=== PATIENT | male | born 1980 | race Caucasian/White ===

== ENCOUNTER 2019-02-14 06:20 | Inpatient (IN) | payer OTHER, MEDICAID ==
[2019-02-14] VITALS (34 sets, daily range): BP systolic 91–164; BP diastolic 42–114
[~2019-02-14] VITALS: Ht 172.7 cm; Wt 96.6 kg
--- NOTE | 2019-02-14 06:45 | NUR ---
38 YO M MORE FROM HOME FOR ALOC. PER EMS, FAMILY CALLED 911 DUE TO PT BEHAVING ABNORMALLY. EMS STATES FAMILY BELIEVES HE MAY HAVE TAKEN TOO MANY PERCOCET. UPON ARRIVAL, PT IS AWAKE, ALERT, AROUSABLE TO VOICE. PT A/O TO NAME AND ANSWERED "4"" WHEN ASKED HOW MANY PERCOCET HE INGESTED. SPEECH IS SLURRED AND MUMBLING. PT IS GENERALLY CONFUSED. BILATERAL CATARACTS NOTED. PER FAMILY/EMS PT HAS TOTAL BLINDNESS. PERITONEAL SHUNT NOTED TO LEFT FOREARM. THRILL/BRUIT NOTED. PT STATES HE HAS PAIN "ALL OVER". PMH-- HTN, DM, ESDR, DIALYSIS DEPENDENT. (DIALYSIS TODAY)
--- NOTE | 2019-02-14 06:49 | NUR ---
PER FAMILY, PT TOOK PERCOCET AND A WHITE PILL WITH MARKING 0-24 AND IT WAS DESCRIVED A MUSCLE RELAXER. PER POISON CONTROLL THE PILL IS IDENTIFIED BACLOFEN. PT IS BLIND AND AN UNKNOWN AMMOUNTS OF MEDICATIONS WERE TAKEN. SPOKE TO DON AT [facility]. RECOMENDATIONS RELAYED TO DR BRADLEY. MONITOR:WIRE ROLLER/AIRWAY, SEIZURES, HYPOTENTION, CARDIAC GIVE: IV FLUIDS, VASSOPRESSORS, AND ATIVAN NEEDED. LABS: CBC AND CMP, CK, AND RENAL FUNCTION OBSERVATION TIME: 8 HOURS AFTER INGESTION
--- NOTE | 2019-02-14 07:00 | NUR ---
URINARY STRAIGHT CATHETER ATTEMPTED WITH PT CONSENT. 14 FR CATHETER INSERTED WITH STERILE TECHNIQUE. LESS THAN 10 ML OBTAINED.
--- NOTE | 2019-02-14 07:16 | NUR ---
REPORT GIVEN TO RIMA NOVA. TRANSFER OF CARE AT THIS TIME.
--- NOTE | 2019-02-14 07:17 | NUR ---
RECEIVED REPORT FROM PM NURSE.
--- NOTE | 2019-02-14 07:25 | NUR ---
MD. LUNA ASSESSING THE PT AT BEDSIDE.
--- NOTE | 2019-02-14 07:29 | NUR ---
INFORMED FAMILY MEMBER TO BRING THE MEDICATION LIST THAT PT TAKES AT HOME. FAMILY MEMBER TO TO BRING MEDS FROM HOME.
--- NOTE | 2019-02-14 07:35 | NUR ---
PT WENT FOR CT.
[2019-02-14 08:22] LABS: BASOPHILS % (AUTO) 0.3 % (0.0-2.0); EOSINOPHILS # (AUTO) 0.1 K/uL (0-0.4); EOSINOPHILS % (AUTO) 0.7 % (0.0-4.0); HEMATOCRIT 46.7 % (36-52); HEMOGLOBIN 15.1 g/dL (12.0-18.0); LYMPHOCYTES # (AUTO) 0.6 K/uL (2.0-11.5); MEAN CORPUSCULAR HEMOGLOBIN 29 pg (27-31); MEAN CORPUSCULAR HGB CONC 32 g/dL (33-37); MEAN CORPUSCULAR VOLUME 89.6 fL (80-94); MONOCYTES # (AUTO) 0.4 K/uL (0.8-1.0); MONOCYTES % (AUTO) 4.2 % (1.7-9.3); NEUTROPHILS # (AUTO) 7.6 K/uL (1.8-7.7); NEUTROPHILS % (AUTO) 87.8 % (42.2-75.2); PLATELET COUNT (AUTO) 241 K/uL (140-450); RED BLOOD CELL COUNT(AUTO) 5.21 MIL/uL (4.20-6.10); RED CELL DISTRIBUTION WIDTH 16.3 % (11.6-13.7); WHITE BLOOD COUNT (AUTO) 8.7 K/uL (4.8-10.8)
[2019-02-14] MEDS ORDERED: CARV25TA PO ×4 (08:26→10:34)
[2019-02-14] MEDS ORDERED: CINA60TA1 PO ×2 (08:26→10:34)
[2019-02-14 08:32] LABS: ACETONE, SERUM NEGATIVE (NEGATIVE)
[2019-02-14 08:35] LABS: URIC ACID 5.9 mg/dL (2.6-7.2)
[2019-02-14 08:37] LABS: ALBUMIN 5.1 g/dL (3.4-5.0); ANION GAP 19.8 (8-16); TOTAL BILIRUBIN 0.7 mg/dL (0.0-1.0)
[2019-02-14 08:40] LABS: PROTHROMBIN TIME 10.5 secs (10.8-13.4)
[2019-02-14 08:43] LABS: POTASSIUM 6.8 mmol/L (3.5-5.1)
[2019-02-14 08:44] LABS: CREATININE 12.6 mg/dL (0.7-1.3)
[2019-02-14] MEDS ORDERED: ERGO50CA PO ×2 (08:49→10:34)
[2019-02-14] MEDS ORDERED: ROSU10TA1 PO ×2 (08:49→10:34)
[2019-02-14] MEDS ORDERED: LEVO0.083 PO ×2 (08:49→10:34)
[2019-02-14] MEDS ORDERED: OMEP20TC12 PO ×2 (08:49→10:34)
[2019-02-14] MEDS ORDERED: ASPI81EC97 PO ×2 (08:49→10:34)
[2019-02-14] MEDS ORDERED: INSULIN REGULAR, HUMAN 100 UNIT/ML VIAL SUBQ ONE (08:50)
[2019-02-14] MEDS ORDERED: SODIUM BICARBONATE 8.4% PFS 50 MEQ/50 ML SYR IVP ONE (08:50)
[2019-02-14] MEDS ORDERED: methylPREDNISolone SS 125 MG/2 ML VIAL IVP ONE (08:50)
[2019-02-14] MEDS ORDERED: DEXTROSE 25% 10 ML SYR IVP ONE (08:50)
[2019-02-14] MEDS ORDERED: CALCIUM GLUCONATE 10% 1000 MG/10 ML VIAL IVP ONE (08:50)
[2019-02-14] MEDS ORDERED: FUROSEMIDE 40 MG/4 ML VIAL IVP ONE (08:50)
[2019-02-14] MEDS ORDERED: SODIUM POLYSTYRENE 15 GM/60 ML UDBTL PR ONE (08:50)
[2019-02-14] MEDS ORDERED: ALBUTEROL 0.083% 2.5 MG/3 ML NEBU INH ONE (08:50)
--- NOTE | 2019-02-14 09:07 | NUR ---
[facility] THERAPY AND RESPIRATORY DRUGS GIVEN ORDERED
[2019-02-14] MEDS ORDERED: DEXTROSE 50% 50 ML SYR IVP SCH (09:25)
[2019-02-14] MEDS ORDERED: ACETAMINOPHEN 325 MG TAB PO PRN (09:45)
[2019-02-14] MEDS ORDERED: ONDANSETRON 4 MG/2 ML VIAL IM/IVP PRN (09:45)
--- NOTE | 2019-02-14 09:47 | NUR ---
Note franco in ED - 02/14/19 at 0955 by MEDBSS PT VOMITINGX1, SWEATING. DR. LUNA MADE AWARE.
--- NOTE | 2019-02-14 09:47 | NUR ---
PT VOMITINGX1, WHILE MEDICATING WITH KYXELATE. PT SWEATING. DR. LUNA MADE AWARE.
--- NOTE | 2019-02-14 09:49 | NUR ---
[facility] residents evaluating patient at bedside.
--- NOTE | 2019-02-14 10:25 | NUR ---
Patient will be admitted to care of . Admited to [facility]. Will go to room RM 117 Belongings list completed. Report to RIMA MONTENEGRO. PT STABLE. FAMILY AT THE BEDSIDE.
--- NOTE | 2019-02-14 10:25 | NUR ---
PT ADMITTED TO FLOOR UNDER DR. MCADAMS . REPORT GIVEN TO RIMA MONTENEGRO. PT STABLE AT THE TIME OF TRANSFER. PT DAUGHTER AT [facility].
--- NOTE | 2019-02-14 10:30 | NUR ---
PATIENT WAS TRANSFERRED FROM ER. REPORT WAS GIVEN AT BEDSIDE. MRSA WAS SWABBED, VS WAS TAKEN. PATIENT WAS DROWSY, DISORIENTED, TOOK OFF PRODUCTION CONTROL TECHNOLOGIST. PATIENT WAS REORIENTED TO ROOM, STAFF, AND CALL LIGHT. RESPIRATION WAS EVEN, UNLABOR ON ROOM AIR. SKIN DRY AND WARM. IV PATENT AND INTACT. AV FISTULA WITH BRUITT PRESENT. PLAN OF CARE WAS DISCUSSED WITH FAMILY. BED AT LOW POSITION, SIDE RAILS UP. CALL LIGHT WITHIN REACH.
[2019-02-14 10:36] LABS: MAGNESIUM 3.2 mg/dL (1.8-2.4); PHOSPHORUS 4.4 mg/dL (2.5-4.9); THYROID STIMULATING HORMONE 3.07 uIU/mL (0.34-3.74)
[2019-02-14] MEDS ORDERED: DEXTROSE 50% 50 ML SYR IVP PRN (10:55)
--- NOTE | 2019-02-14 11:00 | NUR ---
CONSENT FOR DIALYSIS WAS OBTAINED AT BEDSIDE, SIGNED BY PATIENT'S MOTHER DUE TO PATIENT BEING LETHARGIC
[2019-02-14] MEDS: BLOOD GLUCOSE MONITORING 1 DEV DEV FS SCH ×3 (11:46→21:51)
--- NOTE | 2019-02-14 11:49 | NUR ---
PATIENT IS SLEEPING COMFORTABLY. RESPIRATION EVEN, UNLABOR ON ROOM AIR. NO DISTRESS NOTED AT THIS TIME.
--- NOTE | 2019-02-14 12:38 | NUR ---
PATIENT HAD AN EPISODE OF EMESIS, UNABLE TO TOLERATE PO MED AT THIS TIME. ZOFRAN WAS GIVEN PER ORDER.
--- NOTE | 2019-02-14 14:00 | NUR ---
PATIENT WAS SLEEPING COMFORTABLY. RESPIRATION EVEN, UNLABOR ON ROOM AIR. NO DISTRESS NOTED AT THIS TIME. DIALYSIS IS AT BEDSIDE
[2019-02-14] MEDS ORDERED: oxyCODONE/APAP 5/325 MG 1 TAB TAB PO PRN (15:00)
[2019-02-14] MEDS: MORPHINE SULFATE 2 MG/ML SYR IVP PRN (15:08)
--- NOTE | 2019-02-14 15:16 | NUR ---
PATIENT STARTED TO GET AGITATED, RESTLESS, AND SCREAMING. PATIENT WAS FOUND DIAPHORETIC, SINUS TACHY ON TELE MONITOR. DR. ALONZO WAS MADE AWARE. MORPHINE WAS GIVEN PER ORDER. ICE PACKS WERE APPLIED. DIALYSIS AT BEDSIDE.
[2019-02-14] MEDS ORDERED: HALOPERIDOL IM 5 MG/ML VIAL IM SCH (15:30)
--- NOTE | 2019-02-14 15:33 | NUR ---
PATIENT DESAT ON ROOM AIR WHEN FALLING ASLEEP PER DIALYSIS NURSE. PATIENT WAS FOUND BEING LETHARGIC, SPO2 78% ON ROOM AIR. RAPID RESPONSE WAS CALLED. PATIENT WAS PLACED ON 100% NON REBREATHER MASK. NARCAN WAS GIVEN, FOLLOWED 10CC FLUSH. PATIENT BECAME AGITATED, SWINGING ARMS, ATTEMPTING TO REMOVE MASK, AND DIALYSIS LINE. PATIENT WILL BE TRANSFERRED TO ICU PER Addendum: 02/14/19 at 1725 by Paula Stacy RN PLEASE SEE RAPID RESPONSE FORM ATTACH IN CHART
[2019-02-14] MEDS ORDERED: NALOXONE PFS 2 MG/2 ML SYR ONE (15:36)
[2019-02-14] MEDS ORDERED: SHARK OIL/PHENYLEPHRINE 60 GM TUBE TP PRN (16:00)
--- NOTE | 2019-02-14 16:00 | NUR ---
PATIENT WAS TRANSFERRED TO ICU. REPORT WAS GIVEN AT BEDSIDE. VS IS STABLE AT THIS TIME
[2019-02-14] MEDS ORDERED: fentaNYL 1 MG in NACL 0.9% 80 ML IV PRN (16:10)
--- NOTE | 2019-02-14 16:17 | NUR ---
PATIENT TRANSFERRED TO ICU VIA BED, ACCOMPANIED BY RNS DREW, RAYA, AND ROHIT. PATIENT IS AWAKE, AGITATED, COMBATIVE. DR. NICOLE AT BEDSIDE.
--- NOTE | 2019-02-14 16:40 | NUR ---
DR. NICOLE AND RESIDENT PHYSICIANS AT BEDSIDE TO INTUBATE PATIENT.
--- NOTE | 2019-02-14 16:45 | NUR ---
DR. UNA NICOLE AT BEDSIDE FOR INTUBATION DX: AIRWAY PROTECTION LOADER ENGINEER ASSIST
--- NOTE | 2019-02-14 16:50 | NUR ---
DIPRIVAN DOSE BASED ON DRY WEIGHT OF 95 KG.
--- NOTE | 2019-02-14 16:50 | NUR ---
PT. IS VERY RESTLESS, THRASHING IN BED, MOVING ALL EXT., TRYING TO GET UP. RT AC IV CAME OUT. RESSTARTED AGAIN ON THE RT AC WITH G 20 ANGIOCATH. ETOMIDATE AND ROCURONIUM GIVEN ORDERED FOR INTUBATION.
--- NOTE | 2019-02-14 16:50 | NUR ---
DIPRIVAN DRIP ALSO STARTED AT 50 MCG/KG/MIN. PER DR. NICOLE. PT. STILL TRASHING IN BED ON AND OFF.
[2019-02-14] MEDS ORDERED: ETOMIDATE 20 MG/10 ML VIAL IVP ONE ×2 (16:51→16:55)
[2019-02-14] MEDS ORDERED: ROCURONIUM 50 MG/5 ML VIAL IV ONE (16:55)
[2019-02-14] MEDS ORDERED: MORPHINE SULFATE 4 MG/ML SYR IVP PRN (17:00)
[2019-02-14] MEDS: CYCLOBENZAPRINE 10 MG TAB PO SCH (17:00)
[2019-02-14] MEDS: CARVEDILOL 12.5 MG TAB PO SCH (17:00)
[2019-02-14] MEDS ORDERED: LORazepam 2 MG/ML VIAL IVP PRN (17:00)
--- NOTE | 2019-02-14 17:00 | NUR ---
ORALLY INTUBATED BY DR. NICOLE. ETT SIZE 8.0, LIPLINE @ 24. VENT SETTINGS TV 500, FI02 100%, AC 18/MIN, PEEP 5.
--- NOTE | 2019-02-14 17:02 | NUR ---
DR. ALONZO SPEAKING WITH PATIENT'S MOTHER TO GET CONSENT FOR CENTRAL LINE PLACEMENT.
[2019-02-14] MEDS ORDERED: MIDAZOLAM MDV 50 MG in NACL 0.9% 40 ML IV PRN (17:05)
--- NOTE | 2019-02-14 17:10 | NUR ---
COMPTOMETER OPERATOR ASSIST DR ALONZO AT BESIDE FOR RIGHT JUGULAR LINE
--- NOTE | 2019-02-14 17:15 | NUR ---
STILL UNABLE TO INSERT TLC. PT RESTLESS ON AND OFF, TRYING TO GET UP. ATIVAN 2 MG IVP AND MORPHINE 4 MG IVP GIVEN. PROPOFOL AT 50 MCG/KG/MIN.
[2019-02-14] MEDS ORDERED: MORPHINE SULFATE 4 MG/ML SYR ONE (17:16)
[2019-02-14] MEDS ORDERED: LORazepam 2 MG/ML VIAL ONE (17:18)
--- NOTE | 2019-02-14 17:21 | NUR ---
DR. ALONZO AT BEDSIDE TO INSERT CENTRAL LINE. [facility] AND RIMA RUSSELL AT BEDSIDE.
[2019-02-14] MEDS ORDERED: MIDAZOLAM 2 MG/2 ML VIAL IV SCH (17:30)
[2019-02-14] MEDS ORDERED: LORazepam 2 MG/ML VIAL IM/IVP SCH (17:45)
--- NOTE | 2019-02-14 17:46 | NUR ---
FORMULA ROOM WORKER UNABLE TO OBTAIN ABG AT THIS TIME RIGHT J LINE REMAINS IN PROGRESS IN PROGRESS
--- NOTE | 2019-02-14 17:50 | NUR ---
STILL RESTLESS ON AND OFF. TRIES TO GET UP. IV SITE CAME OUT. TRIED TO RESTART IV. UNABLE TO.
--- NOTE | 2019-02-14 17:55 | NUR ---
SET DECORATOR STANDBY RIGHT J LINE REMAINS IN PROGRESS
[2019-02-14] MEDS ORDERED: PIPER/TAZO 3.375GM/D5W PREMIX 50 ML IV SCH (18:00)
--- NOTE | 2019-02-14 18:00 | NUR ---
IO INSERTED BY ER NURSE TO RT AND LEFT LEGS. FENTANYL DRIP STARTED AT 50 MCG/HR. VERSED DRIP STARTED AT 4 MG/HR.
--- NOTE | 2019-02-14 18:30 | NUR ---
STILL RESTLESS UNABLE TO INSERT TLC. VERSED INCREASED TO 6 MG/HR. FENTANYL DRIP INCREASED TO 100 MCG/HR
--- NOTE | 2019-02-14 18:35 | NUR ---
STILL RESTLESS, FENTANYL INCREASED TO 150 MCG/HR.
--- NOTE | 2019-02-14 18:45 | NUR ---
SEDATED. RASS -4. RT IJ TLC INSERTED BY DR. ALONZO.
--- NOTE | 2019-02-14 19:12 | NUR ---
ENDORSED CONTINUITY OF CARE TO ECONOMIC MANAGER MARK. RIMA
--- NOTE | 2019-02-14 19:30 | NUR ---
PER CHEST X-RAY, WITHDREW ETT 2CM. ETT NOW SECURED AT 24 CM AT THE TEETH.
--- NOTE | 2019-02-14 19:32 | NUR ---
RECEIVED REPORT FROM AM NURSE. PT IS SEDATED, RASS -4, PT IS VISUALLY DISABLED HISTORY OF DIABETIC RETINOPATHY, HR REGULAR, S1S2 PRESENT, CAP REFILL <3S, PULSES 2+ BILATERAL UPPER AND LOWER EXTREMITIES, LUNG SOUNDS CLEAR THROUGHOUT, BREATHING REGULARLY, PT ETT TO VENT, SIZE 8, TAPED AT 24 AT TEETH, AC/VC, FI02 100%, RR 18, F 50, PEEP 5, ABDOMEN SOFT, ROUND, NONDISTENDED, NONTENDER, BOWEL SOUNDS ACTIVE IN ALL QUADRANTS, BLADDER SOFT, NONDISTENDED, SKIN INTACT, WARM, DRY, COLOR APPROPRIATE TO ETHNICITY, PT HAS LEFT INTRAOSSEOUS LINE WITH PROPOFOL RUNNING AT 50 MCG/KG/HR, PT HAS RIGHT INTRAOSSEOUS LINE WITH VERSED RUNNING 6 MG/HR, FENTANYL AT 10 ML/HR, 125 MCG/HR. PT IS ON BILATERAL UPPER EXTREMITIES SOFT WRIST RESTRAINTS AND BILATERAL LOWER EXTREMITIES, SOFT ANKLE RESTRAINTS, SIDE RAILS UP X2, BED AT LOWEST POSITION, CALL LIGHTS WITHIN REACH, HOB 30 DEGREES. Addendum: 02/15/19 at 0102 by Magno Gil RN DRY WEIGHT 95 KG Addendum: 02/15/19 at 0144 by Magno Gil RN CORRECTION: PT SIDERAILS UP X4 Addendum: 02/15/19 at 0727 by Magno Gil RN CORRECTION PROPOFOL RUNNING AT 50 MCG/KG/MIN
--- NOTE | 2019-02-14 19:40 | NUR ---
RECEIVED PATIENT ON CURRENT SETTINGS: AC/VC 500 RATE 18 PEEP 5 FIO2 100%. PATIENT HAS A SIZE 8 ET TUBE THAT IS SECURED AT 26 CM AT THE TEETH. PATIENT IS SEDATED. SUCTIONED FOR SMALL, THIN, CLEAR SECRETIONS. VENT PLUGGED INTO RED OUTLET. ALARMS ON AND AUDIBLE. AMBU BAG AT BEDSIDE. FLOWMETER AVAILABLE FOR USE.
[2019-02-14] MEDS: PIPER/TAZO 2.25GM/D5W PREMIX 50 ML IV SCH (21:00)
--- NOTE | 2019-02-14 21:23 | NUR ---
VAP ORAL CARE PERFORMED, SCANT WHITE MUCOUS SUCTIONED AT MOUTH, PT TOLERATED PROCEDURE WELL, VS WNL.
--- NOTE | 2019-02-14 21:30 | NUR ---
NG TUBE INSERTED. CHECKED PLACEMENT WITH 2 RNS, NGT IS PATENT AND ON CORRECT PLACEMENT, PT TOLERATED PROCEDURE WELL. VS WNL.
--- NOTE | 2019-02-14 21:30 | NUR ---
FIO2 DECREASED FROM 100 TO 70% PER ABG'S PAO2 OF 199. SAO2 AT 99%. WILL CONTINUE TO REASSESS AND ADJUST FIO2 IS NECESSARY.
[2019-02-14] MEDS: SIMVASTATIN 40 MG TAB PO SCH (22:21)
[2019-02-14 22:25] LABS: BASOPHILS % (AUTO) 0.3 % (0.0-2.0); HEMATOCRIT 44.6 % (36-52); HEMOGLOBIN 14.6 g/dL (12.0-18.0); LYMPHOCYTES # (AUTO) 0.5 K/uL (2.0-11.5); MEAN CORPUSCULAR HEMOGLOBIN 29 pg (27-31); MEAN CORPUSCULAR HGB CONC 33 g/dL (33-37); MEAN CORPUSCULAR VOLUME 88.6 fL (80-94); MONOCYTES # (AUTO) 0.6 K/uL (0.8-1.0); MONOCYTES % (AUTO) 3.9 % (1.7-9.3); NEUTROPHILS # (AUTO) 15.1 K/uL (1.8-7.7); NEUTROPHILS % (AUTO) 92.5 % (42.2-75.2); PLATELET COUNT (AUTO) 274 K/uL (140-450); RED BLOOD CELL COUNT(AUTO) 5.03 MIL/uL (4.20-6.10); RED CELL DISTRIBUTION WIDTH 16.1 % (11.6-13.7)
[2019-02-14] MEDS: INSULIN LISPRO SLIDING SCALE 100 UNITS/ML VIAL SUBQ PRN (22:25)
[2019-02-14 22:36] LABS: LYMPHOCYTES % (AUTO) 3.3 % (20.5-51.1); WHITE BLOOD COUNT (AUTO) 16.3 K/uL (4.8-10.8)
[2019-02-14 22:44] LABS: ALBUMIN 4.7 g/dL (3.4-5.0); ANION GAP 23.3 (8-16); CARBON DIOXIDE 26.3 mmol/L (21-32); POTASSIUM 5.6 mmol/L (3.5-5.1); TOTAL BILIRUBIN 0.9 mg/dL (0.0-1.0)
[2019-02-14 22:48] LABS: CREATININE 10.2 mg/dL (0.7-1.3)
[2019-02-14] MEDS: PROPOFOL 1000 MG/100 ML PREMIX 100 ML IV PRN (23:09)
[2019-02-15] VITALS (106 sets, daily range): BP systolic 69–156; BP diastolic 29–117
--- NOTE | 2019-02-15 01:27 | NUR ---
VAP ORAL CARE PERFORMED, SCANT WHITE MUCOUS SUCTIONED AT MOUTH, PT TOLERATED PROCEDURE WELL, VS WNL.
[2019-02-15] MEDS: PROPOFOL 1000 MG/100 ML PREMIX 100 ML IV PRN ×3 (02:29→16:38)
[2019-02-15] MEDS: fentaNYL 1 MG in NACL 0.9% 80 ML IV PRN ×2 (03:23→12:41)
--- NOTE | 2019-02-15 04:47 | NUR ---
DR. AMADO AT BEDSIDE. UPDATED MD ON PT CONDITION. INFORMED MD ABOUT COFFEE COLORED EMESIS ON NG TUBE. NO NEW ORDERS AT THIS TIME.
[2019-02-15] MEDS: PIPER/TAZO 2.25GM/D5W PREMIX 50 ML IV SCH ×3 (05:34→21:25)
[2019-02-15 06:05] LABS: ANION GAP 21.9 (8-16); CARBON DIOXIDE 27.2 mmol/L (21-32); POTASSIUM 5.1 mmol/L (3.5-5.1)
[2019-02-15 06:16] LABS: MAGNESIUM 2.6 mg/dL (1.8-2.4); PHOSPHORUS 3.8 mg/dL (2.5-4.9)
[2019-02-15 06:21] LABS: BASOPHILS % (AUTO) 0.1 % (0.0-2.0); EOSINOPHILS % (AUTO) 0.1 % (0.0-4.0); HEMATOCRIT 44.4 % (36-52); HEMOGLOBIN 14.4 g/dL (12.0-18.0); LYMPHOCYTES # (AUTO) 0.8 K/uL (2.0-11.5); LYMPHOCYTES % (AUTO) 5.2 % (20.5-51.1); MEAN CORPUSCULAR HEMOGLOBIN 29 pg (27-31); MEAN CORPUSCULAR HGB CONC 32 g/dL (33-37); MEAN CORPUSCULAR VOLUME 89.1 fL (80-94); MONOCYTES # (AUTO) 0.8 K/uL (0.8-1.0); MONOCYTES % (AUTO) 5.3 % (1.7-9.3); NEUTROPHILS # (AUTO) 13.5 K/uL (1.8-7.7); NEUTROPHILS % (AUTO) 89.3 % (42.2-75.2); PLATELET COUNT (AUTO) 263 K/uL (140-450); RED BLOOD CELL COUNT(AUTO) 4.98 MIL/uL (4.20-6.10); WHITE BLOOD COUNT (AUTO) 15.1 K/uL (4.8-10.8)
[2019-02-15] MEDS ORDERED: PANTOPRAZOLE 40 MG TABEC PO SCH (06:30)
[2019-02-15 06:31] LABS: CREATININE 10.7 mg/dL (0.7-1.3)
--- NOTE | 2019-02-15 07:05 | NUR ---
RECIVD PT ON VENT WITH SETTINGS CHARTED BREATH SOUNDS PRESENT BILAT FEW SCATTERD RALES SXN PT WITH SCANT AMT CLEAR SECS PT INTUBATED WITH 0.8 ETT AT 24 CM AMBU BAG AT BEDSIDE VENT PLUGGED INTO RED OUTLET WILL CONTINUE TO MONITOR PT ON VENT
--- NOTE | 2019-02-15 07:27 | NUR ---
CHANGE OF SHIFT REPORT GIVEN AT AM NURSE. PT AT STABLE CONDITION AT THIS TIME.
--- NOTE | 2019-02-15 07:30 | NUR ---
received pt from pm nurse. pt is sedated. bedside monitor shows SR. ETT SIZE 8 TAPED @ 24 TO VENT WITH SETTING FIO2=45%, AC 500, AC 18, PEEP 5. NO S/S OF RESPIRATORY DISTRESS NOTED. LUNG SOUND CLEAR. NG TUBE TO RIGHT NARES WITH NEPRO AT 10 CC/HR WITH WATER FLUSH 10 CC Q 6 HRS. PLACEMENT CHECKED. ABD SOFT WITH ACTIVE BOWEL SOUND. HD PT . PT HAS SHUNT TO LEFT ARM WITH BRUIT NOTED. PT ALSO HAS RIGHT IJ RUNNING WITH PROPOFOL AT 35 MCG/KG/MIN ( BASED ON DRY WEIGHT 95 KG), FENTANYL AT 10 CC/HR AND VERSED 4 MG/HR. RASS -4. SITE INTACT AND PATENT. PT HAS IO TO RIGHT LOWER EXTREMITIES. PT UPPER EXTREMITIES ON SOFT WRIST RESTRAIN. HOB ELEVATED 30 DEGREE WITH LOW BED POSITION, WILL CONTINUE TO MONITOR PT. ALL SAFETY PRECAUTION IN PLACE.
[2019-02-15] MEDS: BLOOD GLUCOSE MONITORING 1 DEV DEV FS SCH ×4 (07:33→21:00)
[2019-02-15] MEDS: INSULIN LISPRO SLIDING SCALE 100 UNITS/ML VIAL SUBQ PRN (07:33)
[2019-02-15] MEDS: CARVEDILOL 12.5 MG TAB PO SCH ×2 (08:00→16:48)
--- NOTE | 2019-02-15 08:00 | NUR ---
TURNED AND REPOSITIONED PT. ORAL CARE GIVEN.
--- NOTE | 2019-02-15 08:00 | NUR ---
RECIVED PT ON VENT WITH SETTINGS as charted breath sounds present bilat clear ett secure sxn pt with scant amt secs ambu bag at bedside vent plugged into red outlet will continue to monitor pt on vent late entry
--- NOTE | 2019-02-15 08:17 | NUR ---
PATIENT HAS BEEN SCREENED AND CATEGORIZED HIGH NUTRITION RISK. PATIENT WILL BE SEEN WITHIN 1-2 DAYS OF ADMISSION. 02/15/[address]
--- NOTE | 2019-02-15 08:28 | NUR ---
SCREEN FOR LOW BRUNA SCALE AT RISK, PRESSURE INJURY PREVENTION INTERVENTIONS IN PLACE. MOISTURE ASSOCIATED DERMATITIS TO BUTTOCKS AND SACRAL COCCYX AREA. RECOMMENDATION: -APPLY Z GUARD TO BUTTOCKS AND SACRAL COCCYX AREA BID AND PRN IF SOILING -TURN AND REPOSITION PATIENT Q 2H -KEEP SKIN CLEAN AND DRY AT ALL TIMES.
[2019-02-15] MEDS: CINACALCET 30 MG TAB PO SCH (08:59)
[2019-02-15] MEDS: PANTOPRAZOLE 40 MG INJ VIAL IVP SCH (08:59)
[2019-02-15] MEDS ORDERED: NON-FORMULARY ITEM (Rosuvastatin Calcium* (Crestor*) 10 MG) PO SCH (09:00)
[2019-02-15] MEDS: ASPIRIN 81 MG TAB.CHEW PO SCH (09:00)
[2019-02-15] MEDS ORDERED: NON-FORMULARY ITEM (Aspirin (Aspir 81) 81 MG) PO SCH (09:00)
[2019-02-15] MEDS: CYCLOBENZAPRINE 10 MG TAB PO SCH ×3 (09:00→16:36)
[2019-02-15] MEDS: LEVOTHYROXINE 0.088 MG TAB PO SCH (09:00)
[2019-02-15] MEDS ORDERED: NON-FORMULARY ITEM (Omeprazole (Omeprazole) 20 MG) PO SCH (09:00)
--- NOTE | 2019-02-15 11:30 | NUR ---
DR. DIAZ IN TO CHECK PT, WILL F/U WITH ORDERS.
--- NOTE | 2019-02-15 15:38 | NUR ---
02/15/19 RD INITIAL ASSESSMENT COMPLETED PLEASE REFER TO NUTRITION ASSESSMENT UNDER CARE ACTIVITY FOR ESTIMATED NUTRITIONAL NEEDS. 1.CONTINUE NEPHRO AT 35 ML/HR 2.CONTINUE PROSOURCE BID - THIS WILL PROVIDE 900 ML VOLUME, 1,632 KCAL AND 98 GM PROTEIN, WHICH MEETS 100% OF ESTIMATED NEEDS; PT RECEIVING PROPOFOL WHICH PROVIDES AN ADITIONAL 175 KCAL WHICH PROVIDES A TOTAL OF 1,807 KCAL 3.CONTINUE WITH FREE WATER FLUSH RECOMMENDED BY MD 4. RD TO FOLLOW-UP 2-3 DAYS, HIGH RISK ARLETH CAMACHO RD
--- NOTE | 2019-02-15 16:00 | NUR ---
NOTIFIED RESIDENT DR. RUFFIN REGARDING PT DBP 30S-45S. SBP 90S-115S.
--- NOTE | 2019-02-15 16:48 | NUR ---
US TECH AT BEDSIDE.
--- NOTE | 2019-02-15 16:57 | NUR ---
CALLED [facility] FOR DIALYSIS
--- NOTE | 2019-02-15 17:45 | NUR ---
CONTINUED TO MONITOR PT ON VENT WITH SETTINGS CHARTED BREATH SOUNDS CLEAR SXN PT WITH SCANT SECREATIONS AMBU BAG AT BEDSIDE VENT PLUGGED INTO RED OUTLET
--- NOTE | 2019-02-15 19:05 | NUR ---
RECEIVED REPORT FROM DAYSHIFT NURSES AT PATIENT'S BEDSIDE. PATIENT RESTING COMFORTABLY IN BED, EYES CLOSED, FLACC 0.
--- NOTE | 2019-02-15 19:40 | NUR ---
RECEIVED PATIENT RESTING COMFORTABLY IN BED, EYES CLOSED, ANOx0. PATIENT IS ON PROPOFOL DRIP AT 20 MCG/KG/MIN AT 11.4 ML/HR, FENTANYL 10ML/HR, RASS -4, DRY WEIGHT 95KG. AFEBRILE, SKIN WARM AND DRY, HR-94, BP-126/46 , O2SAT 97% RR 18. PATIENT HAS ETT TO VENT TAPED 24 AT THE LIP, SETTINGS ACVC 45% FI02 500TV 18 RATE PEEP 5. PATIENT HAS NGT-RIGHT NARE, CONNECTED TO NEPHRO FEEDING AT 35ML/HR WITH FREE WATER FLUSH [id number]. PLACEMENT CONFIRMED BY AUSCULTATION, RESIDUAL AT THIS TIME <10ML. PATIENT HAS CENTRAL LINE-RIJ, TRIPLE LUMEN, AND RIGHT IO. PATIENT IS A HEMODIALYSIS PATIENT-LEFT LOWER ARM/WRIST FISTULA. NO BENNETT IN PLACE, PATIENT IS ANURIC. LUNG SOUNDS ARE DIMINISHED, UNLABORED BREATHING, EQUAL CHEST RISE. S1S2, SR ON MONITOR. PATIENT IS BLIND, NO REACTION TO LIGHT. PATIENTS SKIN IS INTACT BUT NOTED MULTIPLE HEALING DRIED TINY SCABS ON SACRUM-EXCORIATION. ABDOMEN IS SOFT, NONTENDER, BOWEL SOUNDS ACTIVE. FLACC [address], BED IN LOWEST POSITION, SIDE RAILS UP, HOB 30 DEGREES. WILL CONTINUE TO MONITOR
--- NOTE | 2019-02-15 20:00 | NUR ---
CALLED RESIDENT DOCTORS TO RENEW RESTRAINTS AND TO MODIFY ORDER TO 2 POINT SOFT WRIST RESTRAINTS. WILL CARRY OUT.
--- NOTE | 2019-02-15 20:20 | NUR ---
CALLED RESIDENT DOCTORS, ASKED IF THEY STILL WANT CVP MONITORING. PER KEEP CVP MONITORING. WILL CARRY OUT ORDERS.
[2019-02-15] MEDS: SIMVASTATIN 40 MG TAB PO SCH (21:25)
--- NOTE | 2019-02-15 21:49 | NUR ---
2130 SPUTUM SAMPLE UPTAINED AND SENT TO LAB
--- NOTE | 2019-02-15 23:42 | NUR ---
LOWERED FIO2 TO 40%. SATS 98%
[2019-02-16] VITALS (105 sets, daily range): BP systolic 93–167; BP diastolic 39–100
[2019-02-16] MEDS: PROPOFOL 1000 MG/100 ML PREMIX 100 ML IV PRN ×4 (00:59→23:50)
--- NOTE | 2019-02-16 01:10 | NUR ---
VAP ORAL CARE PROVIDED, PATIENT IS STIMULATED AND BECOMES SLIGHTLY AGITATED. PATIENT WILL ATTEMPT TO BANG HIS HEAD ON THE BED AND HIS FEET WILL KICK AROUND. PATIENT REDIRECTED AND ALLOWS ME TO COMPLETE ORAL CARE.
[2019-02-16] MEDS: fentaNYL 1 MG in NACL 0.9% 80 ML IV PRN ×3 (01:32→22:05)
--- NOTE | 2019-02-16 03:43 | NUR ---
LOWERED FIO2 TO 28%. SATS 99%
--- NOTE | 2019-02-16 04:00 | NUR ---
RESPIRATIONS EVEN AND UNLABORED, EQUAL CHEST RISE, CVP ZERO'D, CURRENT READING 5. FLACC 0
--- NOTE | 2019-02-16 04:35 | NUR ---
CALLED PHARMACY TO CONFIRM COMPATIBILITY FOR CONTINUOUS DRIPS, CONFIRMED PROPOFOL AND FENTANYL ARE COMPATIBLE.
[2019-02-16] MEDS: PIPER/TAZO 2.25GM/D5W PREMIX 50 ML IV SCH ×3 (06:00→20:34)
[2019-02-16] MEDS: BLOOD GLUCOSE MONITORING 1 DEV DEV FS SCH ×4 (06:31→20:34)
--- NOTE | 2019-02-16 06:59 | NUR ---
RECEIVED INTUBATED PT ON VENT WITH A 7.5 ETT SECURED @24 TEETH/GUMS. VENT SETTINGS: AC/VC 18, VT 500, PEEP 5 AND FIO2 28%. PT IS SEDATED AT THIS TIME AND NOT IN ANY DISTRESS. VENT IS PLUGGED INTO A RED OUTLET WITH ALARMS ON AND FUNCTIONING. AMBU BAG IS PRESENT NEAR BEDSIDE. WILL CONTINUE TO MONITOR. Addendum: 02/16/19 at 0928 by Ferdinand Teixeira RT CORRECTION 8.0 ETT*
[2019-02-16 07:01] LABS: BASOPHILS % (AUTO) 0.3 % (0.0-2.0); EOSINOPHILS # (AUTO) 0.3 K/uL (0-0.4); EOSINOPHILS % (AUTO) 2.3 % (0.0-4.0); HEMATOCRIT 45.9 % (36-52); HEMOGLOBIN 14.9 g/dL (12.0-18.0); LYMPHOCYTES % (AUTO) 8.6 % (20.5-51.1); MEAN CORPUSCULAR HEMOGLOBIN 29 pg (27-31); MEAN CORPUSCULAR HGB CONC 33 g/dL (33-37); MEAN CORPUSCULAR VOLUME 89.4 fL (80-94); MONOCYTES # (AUTO) 0.6 K/uL (0.8-1.0); MONOCYTES % (AUTO) 5.7 % (1.7-9.3); NEUTROPHILS # (AUTO) 9.5 K/uL (1.8-7.7); NEUTROPHILS % (AUTO) 83.1 % (42.2-75.2); PLATELET COUNT (AUTO) 220 K/uL (140-450); RED BLOOD CELL COUNT(AUTO) 5.14 MIL/uL (4.20-6.10); RED CELL DISTRIBUTION WIDTH 16.4 % (11.6-13.7); WHITE BLOOD COUNT (AUTO) 11.4 K/uL (4.8-10.8)
[2019-02-16] MEDS: INSULIN LISPRO SLIDING SCALE 100 UNITS/ML VIAL SUBQ PRN ×4 (07:25→20:36)
--- NOTE | 2019-02-16 07:25 | NUR ---
RECEIVED REPORT FROM OCCUPATIONAL ANALYST RN. PT RESTING IN BED. ST ON MONITOR. SKIN DRY AND WARM TO TOUCH. ETT TO VENT, AC/VC FIO2 28% TV 500 RR 18 PEEP 5. NG-TUBE IN PLACE RIGHT NARES. POSITIVE PLACEMENT. RIJ IN PLACE. DRESSING INTACT. PROPOFOL INFUSING AT 20 MCG/KG/MIN. FENTANYL INFUSING AT 100 MCG/HR. ON CVP MONITORING AT 5. LUNGS DIMINISHED. ABDOMEN SOFT, ROUND AND NON-TENDER. ACTIVE BOWEL SOUND. DIALYSIS SHUNT NOTED ON LFA. INTACT DRESSING. + BRUIT, THRILL. BLUISH DISCOLORATION AND DRY SCABS NOTED ON LEFT LOWER LEG. IO IN PLACE ON RIGHT LOWER LEG. NG-TUBE FEEDING AT 35 ML/HR. RESIDUAL 40 ML. HOB ELEVATED. BED IN LOW POSITION LOCKED. CONTINUE TO MONITOR. Addendum: 02/16/19 at 1543 by Odessa Natarajan RN WRONG NURSE.
--- NOTE | 2019-02-16 07:25 | NUR ---
RECEIVED REPORT FROM ACCOUNT EXECUTIVE SOFTWARE SALES RN. PT RESTING IN BED. ST ON MONITOR. SKIN DRY AND WARM TO TOUCH. ETT TO VENT, AC/VC FIO2 28% TV 500 RR 18 PEEP 5. NG-TUBE IN PLACE RIGHT NARES. POSITIVE PLACEMENT. RIJ IN PLACE. DRESSING INTACT. PROPOFOL INFUSING AT 20 MCG/KG/MIN. DRY WEIGHT 95 KG. FENTANYL INFUSING AT 100 MCG/HR. ON CVP MONITORING AT 5. LUNGS DIMINISHED. ABDOMEN SOFT, ROUND AND NON-TENDER. ACTIVE BOWEL SOUND. DIALYSIS SHUNT NOTED ON LFA. INTACT DRESSING. + BRUIT, THRILL. BLUISH DISCOLORATION AND DRY SCABS NOTED ON LEFT LOWER LEG. IO IN PLACE ON RIGHT LOWER LEG. NG-TUBE FEEDING AT 35 ML/HR. RESIDUAL 40 ML. HOB ELEVATED. BED IN LOW POSITION LOCKED. CONTINUE TO MONITOR.
--- NOTE | 2019-02-16 07:25 | NUR ---
REPORT GIVEN TO DAYSHIFT NURSES AT PATIENTS BEDSIDE FOR CONTINUITY OF CARE. PATIENT RESTING WELL AT THIS TIME.
[2019-02-16 08:00] LABS: MAGNESIUM 2.6 mg/dL (1.8-2.4); PHOSPHORUS 4.7 mg/dL (2.5-4.9)
[2019-02-16 08:01] LABS: ANION GAP 27.1 (8-16); CARBON DIOXIDE 23.7 mmol/L (21-32); POTASSIUM 5.8 mmol/L (3.5-5.1)
[2019-02-16 08:04] LABS: CREATININE 13.3 mg/dL (0.7-1.3)
[2019-02-16] MEDS: CARVEDILOL 12.5 MG TAB PO SCH ×2 (08:28→18:09)
[2019-02-16] MEDS: PANTOPRAZOLE 40 MG INJ VIAL IVP SCH (08:29)
[2019-02-16] MEDS: CYCLOBENZAPRINE 10 MG TAB PO SCH ×3 (08:29→18:10)
[2019-02-16] MEDS: ASPIRIN 81 MG TAB.CHEW PO SCH (08:29)
[2019-02-16] MEDS: LEVOTHYROXINE 0.088 MG TAB PO SCH (08:30)
[2019-02-16] MEDS: CINACALCET 30 MG TAB PO SCH (08:30)
--- NOTE | 2019-02-16 10:08 | NUR ---
RECEIVED CALL FROM POISON CONTROL. SPOKE TO MONICA. Zachery[DATED PT CONDITIONS AND LAB RESULTS. MADE RECOMMENDATION FOR ACETAMINOPHEN AND SALICYLATE DRUG LEVEL TEST THROUGH BLOOD. DR. KHOURY MADE AWARE.
--- NOTE | 2019-02-16 10:10 | NUR ---
DR. TAYLOR IN TO SEE PT. UPDATED PT STATUS AND LAB RESULTS. NO NEW ORDERS AT THIS TIME.
--- NOTE | 2019-02-16 12:20 | NUR ---
ORAL CARE PROVIDED PER VAP PROTOCOL. KEP PT CLEAN AND DRY. ST ON MONITOR. NO SOB OR ACUTE RESPIRATORY DISTRESS NOTED. BP 124/54. FAMILY AT THE BEDSIDE. UPDATED PT STATUS.
--- NOTE | 2019-02-16 12:26 | NUR ---
DIALYSIS NURSE AT THE BEDSIDE.
[2019-02-16 12:28] LABS: ACETAMINOPHEN < 0.5 ug/ml (10-30); SALICYLATE < 2.8 mg/dL (2.8-20.0)
--- NOTE | 2019-02-16 12:40 | NUR ---
CALLED [facility] #[phone]. SPOKE TO PAMELA. REQUESTED FOR HEPATIC PANEL RESULT FAX. SAID WILL FAX TO US.
--- NOTE | 2019-02-16 12:53 | NUR ---
PT RECEIVING DIALYSIS AT THIS TIME.PT TOLERATING VENT SETTINGS WELL NOT IN ANY DISTRESS AT THIS TIME. FAMILY IS BEDSIDE. WILL CONTINUE TO MONITOR.
--- NOTE | 2019-02-16 15:04 | NUR ---
CONTINUE ON DIALYSIS. TOLERATING DIALYSIS. NO SOB OR RESPIRATORY DISTRESS NOTED. HR 109, BP 125/67, SPO2 94% RR 23. DIALYSIS NURSE AT THE BEDSIDE.
--- NOTE | 2019-02-16 15:04 | NUR ---
CONTINUE ON DIALYSIS. TOLERATING DIALYSIS. NO SOB OR RESPIRATORY DISTRESS NOTED. HR 109, BP 125/67, SPO2 94% RR 23. DIALYSIS NURSE AT THE BEDSIDE. Addendum: 02/16/19 at 1545 by Odessa Natarajan RN DEMETRIS NURSE
[2019-02-16] MEDS ORDERED: VANCOMYCIN PER PHARMACY MC PRN (15:10)
--- NOTE | 2019-02-16 15:30 | NUR ---
PT REMAINS ON DIALYSIS. PT SUCTIONED OBTAINED SCANT AMOUNT OF THIN CLEAR SECRETIONS, AIRWAY IS PATENT AND ETT IS SECURE. PT NOT IN ANY DISTRESS AT THIS TIME. WILL CONTINUE TO MONITOR.
--- NOTE | 2019-02-16 15:55 | NUR ---
FIO2 INCREASED TO 30% DUE TO SPO2% DECREASING . PT NOT IN ANY DISTRESS AT THIS TIME. WILL CONTINUE TO MONITOR.
[2019-02-16] MEDS ORDERED: VANCOMYCIN 1,000 MG in DEXTROSE 5% 250 ML IV SCH (16:00)
[2019-02-16] MEDS ORDERED: VANCOMYCIN 1,500 MG in DEXTROSE 5% 500 ML IV SCH (16:00)
--- NOTE | 2019-02-16 16:41 | NUR ---
DIALYSIS COMPLETED. PT TOLERATED WELL. TOOK 1500 ML OUT.
--- NOTE | 2019-02-16 16:42 | NUR ---
DR. ARTEAGA AT BEDSIDE. HELD PROPOFL DRIP PER VERBAL ORDER AT THIS TIME.
--- NOTE | 2019-02-16 17:28 | NUR ---
PT REMAINS ON DOCUMENTED VENT SETTINGS. PT HR ELEVATED AT THIS TIME SLIGHTLY IRRITABLE BUT NOT SOB AND NOT IN RESPIRATORY DISTRESS. VENT ALARMS ON AND FUNCTIONING. ETT REMAINS SECURE WITH A PATENT AIRWAY.
--- NOTE | 2019-02-16 17:41 | NUR ---
PT SUCTIONED OBTAINED SMALL AMOUNT OF THICK YELLOW SECRETIONS, AIRWAY IS PATENT AND ETT REMAINS SECURE. FAMILY IS BEDSIDE.
--- NOTE | 2019-02-16 19:11 | NUR ---
RECEIVED BEDSIDE REPORT FROM DAY SHIFT RIMA LOYA. PATIENT EET TO VENT, AC, FIO2 30% VT 519 RR [address] ON MONITOR 117 BMP. BP 119/60 MAP 89. OG TUBE IN PLACE INFUSING NEPHRO AT 35 ML/HR WITH 10 ML WATER FLUSH Q6H. PATIENT ANURIC ACCORDING TO DAY SHIFT NURSE. AA0X 0, RIGHT IJ, TRIPLE LUMEN INFUSING PROPOFOL AT 20 MCG/KG/MIN WITH DRY WEIGHT 95 KG, RASS -4, AND FENTANYL AT 100 MCG/MIN. LEFT FA FISTULA. ACCORDING TO DAY SHIFT NURSE PATIENT HAD HD [address] REYES AT BEDSIDE, UPDATE GIVEN, NO NEW ORDERS AT THIS TIME. FAMILY AT BESIDE. Addendum: 02/17/19 at 0553 by Doris Garibay RN NG TUBE IN PLACE IN RIGHT NARE PLEASE DISREGARD OG TUBE
--- NOTE | 2019-02-16 19:11 | NUR ---
REPORT GIVEN TO PIPE LINE REPAIRER RN FOR CONTINUITY OF CARE.
--- NOTE | 2019-02-16 19:15 | NUR ---
RECVD PT ORALLY INTUBATED WITH E.T.TUBE SIZE 8, 24@ THE TEETH. PTS MECH VENT SETTINGS OF AC: RATE 18, TIDAL VOLUME 500,PEEP 5, FIO2 30%. ALARMS ON & AUDIBLE. AMBU BAG AT BEDSIDE. MECH VENT CONNECTED TO RED PLUG OUTLET. FAMILY AT BEDSIDE. WILL CONTINUE TO MONITOR PT.
--- NOTE | 2019-02-16 19:45 | NUR ---
ZEROED CVP. CVP 5 MMHG. WILL CONTINUE TO MONITOR.
--- NOTE | 2019-02-16 20:00 | NUR ---
ORAL CARE PROVIDED, PATIENT TOLERATED WELL.
--- NOTE | 2019-02-16 20:34 | NUR ---
DUE MEDICATIONS GIVEN, RESIDUALS AT 60 ML. GAVE 6 UNITS INSULIN FOR BLOOD GLUCOSE 263.
[2019-02-16] MEDS: SIMVASTATIN 40 MG TAB PO SCH (20:35)
--- NOTE | 2019-02-16 22:00 | NUR ---
PATIENT MOVING AROUND, LOOKS AGITATED, RASS -3. INCREASED PROPOFOL TO 25 MCG/KG/MIN. PROPOFOL INFUSING AT 14.25 ML/HR. V/S STABLE.
--- NOTE | 2019-02-16 22:05 | NUR ---
PATIENT LOOKS RELAXED. RASS -4. V/S STABLE. WILL CONTINUE TO MONITOR.
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
--- NOTE | 2019-02-16 23:50 | NUR ---
HANGED NEW BOTTLE PROPOFOL INFUSING AT 25 MCG/KG/MIN. RASS -4. V/S STABLE
[2019-02-17] VITALS (103 sets, daily range): BP systolic 88–154; BP diastolic 35–104
--- NOTE | 2019-02-17 02:00 | NUR ---
SUCTIONED PATIENT X1, SCANT SECRETIONS NOTED, V/S STABLE
[2019-02-17] MEDS: PROPOFOL 1000 MG/100 ML PREMIX 100 ML IV PRN ×4 (03:19→18:58)
--- NOTE | 2019-02-17 04:00 | NUR ---
PATIENT HAD 1 LARGE BM, GREEN, AND WATERY. ORAL CARE PROVIDED. REPOSITIONED FOR COMFORT.
[2019-02-17] MEDS: PIPER/TAZO 2.25GM/D5W PREMIX 50 ML IV SCH ×3 (04:38→20:58)
--- NOTE | 2019-02-17 04:51 | NUR ---
DUE ZOSYN GIVEN
--- NOTE | 2019-02-17 05:15 | NUR ---
ADMINISTERED NEW BOTTLE OF PROPOFOL AT 25 MCG/KG/MIN INFUSING AT 14.25 ML/HR, RASS -4
--- NOTE | 2019-02-17 05:20 | NUR ---
LABS DRAWN AT BEDSIDE
[2019-02-17 05:42] LABS: BASOPHILS # (AUTO) 0.1 K/uL (0.00-0.22); BASOPHILS % (AUTO) 0.6 % (0.0-2.0); EOSINOPHILS # (AUTO) 0.4 K/uL (0-0.4); EOSINOPHILS % (AUTO) 3.9 % (0.0-4.0); HEMATOCRIT 46.1 % (36-52); HEMOGLOBIN 15.1 g/dL (12.0-18.0); LYMPHOCYTES # (AUTO) 0.9 K/uL (2.0-11.5); LYMPHOCYTES % (AUTO) 9.8 % (20.5-51.1); MEAN CORPUSCULAR HEMOGLOBIN 29 pg (27-31); MEAN CORPUSCULAR HGB CONC 33 g/dL (33-37); MEAN CORPUSCULAR VOLUME 89.7 fL (80-94); MONOCYTES # (AUTO) 0.7 K/uL (0.8-1.0); MONOCYTES % (AUTO) 7.3 % (1.7-9.3); NEUTROPHILS % (AUTO) 78.4 % (42.2-75.2); PLATELET COUNT (AUTO) 206 K/uL (140-450); RED BLOOD CELL COUNT(AUTO) 5.14 MIL/uL (4.20-6.10)
[2019-02-17 06:09] LABS: ANION GAP 18.9 (8-16); CARBON DIOXIDE 28.9 mmol/L (21-32); POTASSIUM 4.8 mmol/L (3.5-5.1)
[2019-02-17 06:12] LABS: CREATININE 10.1 mg/dL (0.7-1.3)
[2019-02-17 06:13] LABS: MAGNESIUM 2.1 mg/dL (1.8-2.4); PHOSPHORUS 5.2 mg/dL (2.5-4.9)
[2019-02-17] MEDS: LEVOTHYROXINE 0.088 MG TAB PO SCH (06:24)
[2019-02-17] MEDS: BLOOD GLUCOSE MONITORING 1 DEV DEV FS SCH ×4 (06:29→20:58)
[2019-02-17] MEDS: INSULIN LISPRO SLIDING SCALE 100 UNITS/ML VIAL SUBQ PRN ×4 (06:35→21:00)
[2019-02-17 06:37] LABS: WHITE BLOOD COUNT (AUTO) 8.9 K/uL (4.8-10.8)
--- NOTE | 2019-02-17 07:17 | NUR ---
ENDORSED PATIENT TO DAY SHIFT NURSE SHALINI FOR CONTINUITY OF CARE.
--- NOTE | 2019-02-17 07:17 | NUR ---
RECEIVED REPORT FROM PRINCIPLE SOFTWARE ENGINEER RN. PT RESTING IN BED. ST ON MONITOR. SKIN DRY AND WARM TO TOUCH. ETT TO VENT, AC/VC FIO2 30% TV 500 RR 18 PEEP 5. NG-TUBE IN PLACE. POSITIVE PLACEMENT. RIJ IN PLACE. DRESSING INTACT. PROPOFOL INFUSING AT 25 MCG/KG/MIN. DRY WEIGHT 95 KG. FENTANYL INFUSING AT 100 MCG/HR. ON CVP MONITORING AT 5. LUNGS CLEAR. ABDOMEN SOFT, ROUND AND NON-TENDER. ACTIVE BOWEL SOUND. DIALYSIS SHUNT NOTED ON LFA. INTACT DRESSING. + BRUIT, THRILL. BLUISH DISCOLORATION AND DRY SCABS NOTED ON LEFT LOWER LEG. IO IN PLACE ON RIGHT LOWER LEG. NG-TUBE FEEDING AT 35 ML/HR. RESIDUAL 0 ML NOTED. MULTIPLE SCRATCH DOUGLAS NOTED ON LOWER BACK. KEPT AREA CLEAN AND DRY. HOB ELEVATED. BED IN LOW POSITION LOCKED. CONTINUE TO MONITOR.
[2019-02-17] MEDS: CARVEDILOL 12.5 MG TAB PO SCH ×3 (08:00→16:48)
[2019-02-17] MEDS: CYCLOBENZAPRINE 10 MG TAB PO SCH ×3 (08:27→16:42)
[2019-02-17] MEDS: CINACALCET 30 MG TAB PO SCH (08:27)
[2019-02-17] MEDS: PANTOPRAZOLE 40 MG INJ VIAL IVP SCH (08:27)
[2019-02-17] MEDS: ASPIRIN 81 MG TAB.CHEW PO SCH (08:28)
[2019-02-17] MEDS: fentaNYL 1 MG in NACL 0.9% 80 ML IV PRN ×2 (08:49→19:56)
--- NOTE | 2019-02-17 10:00 | NUR ---
SUCTIONED, WHITE SECRETION NOTED. REPOSITIONED. KEPT PT CLEAN AND DRY. OFFLOADED PRESSURE AREAS.
--- NOTE | 2019-02-17 10:15 | NUR ---
DR. TAYLOR IN TO SEE PT. WILL FOLLOW UP ON ORDER.
--- NOTE | 2019-02-17 11:00 | NUR ---
NO SOB OR ACUTE RESPIRATORY DISTRESS NOTED. CONTINUE ON SAME VENT SETTING. CONTINUE ON PROPOFOL AND FENTANYL DRIP. RIJ DRESSING INTACT. CVP MEASURED AT 5.
[2019-02-17] MEDS: CALCIUM ACETATE 667 MG TAB PO SCH ×2 (11:33→16:42)
[2019-02-17] MEDS ORDERED: CALCIUM ACETATE 667 MG TAB PO SCH (12:00)
--- NOTE | 2019-02-17 13:20 | NUR ---
PAGED AND RECEIVED CALL BACK FROM CRESCENCIO. CRESCENCIO MADE AWARE OF SCHEDULED DIALYSIS FOR TOMORROW.
--- NOTE | 2019-02-17 14:03 | NUR ---
LEW ACHARYA, CINDY 02/17/19 RD FOLLOW UP COMPLETED PLEASE REFER TO NUTRITION PROGRESS NOTE UNDER CARE ACTIVITY FOR ESTIMATED NUTRITION NEEDS. RD RECOMMENDATIONS: 1. RECOMMEND CONTINUE NEPRO AT 35ML/HR WITH PROSOURCE BID. THIS WILL PROVIDE 900 ML VOLUME, 1,632 KCAL AND 98 GM PROTEIN, WHICH MEETS 100% OF ESTIMATED NEEDS; 2. PROPROFOL AT 25MCG/KG/MIN PROVIDES AN ADDITIONAL 306KCAL. 3. RD WILL F/U 2-3 DAYS; HIGH RISK. LEW ACHARYA, RD
--- NOTE | 2019-02-17 16:00 | NUR ---
NO SOB OR RESPIRATORY DISTRESS NOTED. NO CHANGE IN CONDITION. CONTINUE ON SAME VENT SETTING. CONTINUE ON SEDATION. RASS -4. HOB ELEVATED. RESIDUAL 0. CONTINUE FEEDING. CENTRAL LINE DRESSING INTACT.
--- NOTE | 2019-02-17 18:55 | NUR ---
RECEIVED PT INTUBATED SAME VENT SETTINGS, VENT CK DONE, NO CHANGES IN PT STATUS, PT IS ASLEEP, VITALS STABLE, NO SX INDICATED
--- NOTE | 2019-02-17 19:16 | NUR ---
REPORT GIVEN TO ACCOUNTING TUTOR RN FOR CONTINUITY OF CARE. PT ON STABLE CONDITION.
--- NOTE | 2019-02-17 19:30 | NUR ---
RECEIVED REPORT FROM MORNING RN, SHALINI, FOR CONTINUITY OF CARE. VS STABLE AT THIS TIME. AFEBRILE. FLACC 0. PT UNABLE TO MAKE NEEDS KNOW OR VERBALIZE UNDERSTANDING. PT CURRENTLY SEDATED WITH PROPOFOL AT 25MCG/KG/MIN WITH DRY WT 95KG. RASS -4. FENTANYL DRIP RUNNING AT 100MCG/HR. PT DOES NOT APPEAR TO BE IN ANY DISCOMFORT AT THIS TIME. LUNG SOUNDS CLEAR. ETT TO VENT WITH SETTINGS A/C VC FIO2 30%, TV 500, RR18, AND PEEP 5. CHEST RISE SYMMETRIC. NO SOB NOTED. S1+S2 HEARD. PULSES PALPABLE IN ALL EXTREMITIES. ST ON MONITOR. BP WNL. ABDOMEN ROUND, SOFT AND NONDISTENDED. BS ACTIVE IN ALL QUADRANTS. NGT THROUGH RIGHT NARES. SECURED IN PLACE. PLACEMENT CHECKED. NO RESIDUAL ASPIRATED. PT HAS NEPRO AT 35ML/HR. NON-BEHAVIORAL RESTRAINTS IN PLACE, SOFT WRIST ON BOTH WRIST. PT HAS RIGHT IJ CENTRAL LINE THAT IS PATENT, INTACT AND ASYMPTOMATIC. DRESSING C/D/I WELL. PT HAS DIALYSIS ACCESS ON LEFT FOREARM. PT ANURIC. PT HAD ONE BM THAT WAS LOOSE TO LIQUID. BROWNISH YELLOW IN COLOR. KEPT HOB AT 30 DEGREES. BED AT LOW POSSIBLE POSITION. ALL SAFETY PRECAUTIONS ARE IN PLACE. Addendum: 02/17/19 at 2329 by Alexander Chávez RN PT HAS CVP MONITORING IN PLACE. LINE ZEROED. CVP 8 AT THIS TIME.
--- NOTE | 2019-02-17 20:41 | NUR ---
DR. CHARLES AT BEDSIDE TO SEE PT. UPDATED HIM REGARDING PT CONDITION. SHOWED DR. CHARLES THE [facility], D/T PER REPORT THEY WANTED TO CLARIFY WITH DR. CHARLES IF WANTED TO START PT ON ANTIFUNGAL TREATMENT. PER DR. CHARLES THERE IS NOTHING TO BE TREATED.
[2019-02-17] MEDS: SIMVASTATIN 40 MG TAB PO SCH (20:58)
--- NOTE | 2019-02-17 23:05 | NUR ---
PT HAD ANOTHER BM. BM WAS LOOSE. PT WAS CLEANED. TOLERATED BEING TURNED AND REPOSITIONED FAIRLY. NO SOB NOTED. VS STABLE. SR TO ST ON MONITOR. ALL SAFETY PRECAUTIONS REMAINS IN PLACE. WILL CONTINUE TO MONITOR PT.
[2019-02-18] VITALS (102 sets, daily range): BP systolic 57–160; BP diastolic 14–111
--- NOTE | 2019-02-18 00:18 | NUR ---
VAP ORAL CARE PROVIDED TO PT. TURNED AND REPOSITIONED. NO CHANGE IN PT'S CONDITION AT THIS TIME. SR ON MONITOR. RESPIRATIONS ARE EVEN AND UNLABORED. NO SIGNS ON INJURY FROM THE NON-BEHAVIORAL SOFT WRIST RESTRAINTS IN PLACE. NO BM AT THIS TIME. WILL CONTINUE TO MONITOR PT.
[2019-02-18] MEDS: PROPOFOL 1000 MG/100 ML PREMIX 100 ML IV PRN ×3 (01:30→15:46)
--- NOTE | 2019-02-18 02:20 | NUR ---
PT TURNED AND REPOSITIONED. VS REMAINS STABLE. SR ON MONITOR. NO CHANGE IN PT'S CONDITION. STILL SEDATED WITH PROPOFOL AND FENTANYL WITH RASS -4. PT DOES NOT APPEAR TO BE EXPERIENCING ANY DISCOMFORT AT THIS TIME. SAME VENT SETTINGS AND OXYGEN SATURATION WNL. CHEST RISE SYMMETRIC AND NO SOB NOTED. ALL SAFETY PRECAUTIONS ARE IN PLACE. PT TURNED AND REPOSITIONED. NO BM AT THIS TIME. WILL CONTINUE TO MONITOR PT.
[2019-02-18] MEDS: PIPER/TAZO 2.25GM/D5W PREMIX 50 ML IV SCH ×3 (04:11→20:35)
--- NOTE | 2019-02-18 04:40 | NUR ---
RESPIRATIONS EVEN AND UNLABORED. NO CHANGE IN PT'S CONDITION. VS REMAINS STABLE. WILL CONTINUE TO MONITOR PT.
--- NOTE | 2019-02-18 05:42 | NUR ---
PT ON PROPOFOL, NO CHANGES IN VENT SETTINGS, CHANGE HME , CARTER, SX SMALL CLOUDY SECRETION, NO DISTRESS NOTED
[2019-02-18] MEDS: LEVOTHYROXINE 0.088 MG TAB PO SCH (06:35)
[2019-02-18 06:36] LABS: MAGNESIUM 2.1 mg/dL (1.8-2.4); PHOSPHORUS 6.4 mg/dL (2.5-4.9)
[2019-02-18] MEDS: fentaNYL 1 MG in NACL 0.9% 80 ML IV PRN ×2 (06:37→20:38)
[2019-02-18 06:47] LABS: BASOPHILS % (AUTO) 0.5 % (0.0-2.0); EOSINOPHILS # (AUTO) 0.6 K/uL (0-0.4); EOSINOPHILS % (AUTO) 6.9 % (0.0-4.0); HEMATOCRIT 41.9 % (36-52); HEMOGLOBIN 13.7 g/dL (12.0-18.0); LYMPHOCYTES # (AUTO) 1.5 K/uL (2.0-11.5); LYMPHOCYTES % (AUTO) 16.9 % (20.5-51.1); MEAN CORPUSCULAR HEMOGLOBIN 29 pg (27-31); MEAN CORPUSCULAR HGB CONC 33 g/dL (33-37); MEAN CORPUSCULAR VOLUME 89.4 fL (80-94); MONOCYTES # (AUTO) 0.9 K/uL (0.8-1.0); MONOCYTES % (AUTO) 9.6 % (1.7-9.3); NEUTROPHILS % (AUTO) 66.1 % (42.2-75.2); PLATELET COUNT (AUTO) 189 K/uL (140-450); RED BLOOD CELL COUNT(AUTO) 4.69 MIL/uL (4.20-6.10); RED CELL DISTRIBUTION WIDTH 15.8 % (11.6-13.7); WHITE BLOOD COUNT (AUTO) 9.1 K/uL (4.8-10.8)
[2019-02-18] MEDS: BLOOD GLUCOSE MONITORING 1 DEV DEV FS SCH ×4 (06:54→20:34)
[2019-02-18] MEDS: INSULIN LISPRO SLIDING SCALE 100 UNITS/ML VIAL SUBQ PRN ×3 (06:54→17:00)
--- NOTE | 2019-02-18 07:10 | NUR ---
RECEIVED PT ON VENT. AC/VC RATE 18, VT 500, PEEP 5, 30% O2. HR 101, SAT 95%. NO RESP DISTRESS. VENT BRAKES ON. VENT PLUGGED INTO RED OUTLET. AMBU BAG AT BEDSIDE.
--- NOTE | 2019-02-18 07:15 | NUR ---
RECEIVED REPORT FROM NIGHT NURSE FOR CONTINUATION OF CARE. PATIENT UNABLE TO MAKE NEEDS KNOWN. FLACC 0. SEDATED ON PROPOFOL @ 25 MCG/KG/MIN WITH DRY WEIGHT OF 95 KG. FENTANYL DRIP@ 100 MCG/HR. NO DISCOMFORT NOTED. RASS-4. FI02 30%. RR 18. VT 500. FLOW 40 PEEP 5. CVP 8. DIALYSIS ACCESS ON LEFT FA/WRIST. SKIN INTACT. NG TUBE TO R NARES SECURED IN PLACE AND PLACEMENT CHECKED. NEPRO 35ML/HR WITH 10ML EVERY 6H. NO RESIDUAL NOTED. BOWEL SOUNDS IN ALL 4 QUADRANTS. LUNG SOUNDS CLEAR BILATERALLY. NO DISTRESS OR SOB NOTED. PULSE IN ALL 4 EXTREMITIES. SKIN COLOR PINK AND DRY. ABDOMEN ROUND AND SOFT WITH NO DISTENSION NOTED. R IJ CENTRAL LINE PATENT, INTACT AND NO S/S OF INFECTION NOTED. NON BEHAVIORAL RESTRAINTS INTACT. NO BROKEN SKIN NOTED. PULSES CHECKED. HEEL GUARDS IN PLACE. HOB 30 DEGREES. SIDE RAILS UP. SAFETY MEASURES IN PLACE. RT IN ROOM AT CHANGE OF SHIFT. 148/53-92-98.4-18. NO S/S OF DISTRESS OR DISCOMFORT. WILL CONTINUE CARE OF PATIENT.
--- NOTE | 2019-02-18 07:15 | NUR ---
REPORT GIVEN TO RIMA PHELAN FOR CONTINUITY OF CARE. VS STABLE AT THIS TIME
[2019-02-18 08:04] LABS: ANION GAP 24.5 (8-16); CARBON DIOXIDE 26.2 mmol/L (21-32); POTASSIUM 4.7 mmol/L (3.5-5.1)
[2019-02-18 08:19] LABS: CREATININE 12.3 mg/dL (0.7-1.3)
--- NOTE | 2019-02-18 08:25 | NUR ---
resident quinn in patients room. notified of critical labs given at 0818. no changes made.
--- NOTE | 2019-02-18 08:30 | NUR ---
oral care performed. patient tolerated well. no s/s of distress. vital signs stable.
[2019-02-18] MEDS: VIT-B COMP/VIT-C/FOLIC ACID 1 TAB PO SCH (08:51)
[2019-02-18] MEDS: CYCLOBENZAPRINE 10 MG TAB PO SCH ×3 (08:51→18:01)
[2019-02-18] MEDS: PANTOPRAZOLE 40 MG INJ VIAL IVP SCH (08:51)
[2019-02-18] MEDS: CINACALCET 30 MG TAB PO SCH (08:52)
[2019-02-18] MEDS: ASPIRIN 81 MG TAB.CHEW PO SCH (08:52)
[2019-02-18] MEDS: CALCIUM ACETATE 667 MG TAB PO SCH ×3 (08:53→18:01)
[2019-02-18] MEDS ORDERED: VIT-B COMP/VIT-C/FOLIC ACID 1 TAB PO SCH (09:00)
[2019-02-18] MEDS: CARVEDILOL 12.5 MG TAB PO SCH ×2 (09:00→17:00)
--- NOTE | 2019-02-18 09:40 | NUR ---
spoke with respiratory therapy-ada. spoke with nurse hernandez. decision to start sedation vacation. vvs. no s/s/ of distress. will continue to monitor.
--- NOTE | 2019-02-18 11:00 | NUR ---
patient sedation ended. patient was following commands. able to nod yes or no. was communicating through commands. coherent in his commands. patient communicating with family as well.
--- NOTE | 2019-02-18 11:40 | NUR ---
nurse hernandez spoke with pharmacy and dr. qunin who states we will hold vitamin d at this time.
--- NOTE | 2019-02-18 11:42 | NUR ---
SKIN ASSESSMENT DONE WITH PRIMARY RN, NO OPEN ACTIVE WOUND, IAD TO BUTTOCKS AREA IMPROVING.
--- NOTE | 2019-02-18 13:30 | NUR ---
dr. link present. signed consent for hemodialysis. will follow up on orders. will continue to monitor patient
--- NOTE | 2019-02-18 14:15 | NUR ---
patient 2nd sedation vacation started when dr. faust was present.vvs. will continue to monitor.
--- NOTE | 2019-02-18 14:25 | NUR ---
Dr. Kern present. writing new orders for weaning and sedation vacation.
--- NOTE | 2019-02-18 14:25 | NUR ---
CPAP TRIAL INITIATED. PT IS DOING WELL. RR 16. HR 93, SAT 94% VT 548
--- NOTE | 2019-02-18 15:15 | NUR ---
dialysis arrived and decided to stop his 2nd sedation vacation for comfort measures. vvs at this time
--- NOTE | 2019-02-18 15:15 | NUR ---
CPAP TRIAL STOPPED DUE TO HEMODIALYSIS PROCEDURE. PT BACK ON AC/VC SETTINGS. RATE 18, VT 500, 30%, PEEP 5
--- NOTE | 2019-02-18 17:00 | NUR ---
oral care preformed for patient. patient able to communicate through head nodding and hand gestures. coherent in his responses. lung sounds clear at this time. ng tube ascultated and patent. patient showing no s/s of distress
--- NOTE | 2019-02-18 17:30 | NUR ---
patient ng tube checked for patency. ascultated and present. patent before giving meds. lung sounds clear.
--- NOTE | 2019-02-18 18:30 | NUR ---
communicating with patient. states hes ok by head nod yes. states head nod yes to family coming to visit today. no pain noted. no s/s of distress. suction patient. communicating well through gestures. lung sounds clear. patient states hes tolerating dialysis well.
--- NOTE | 2019-02-18 18:30 | NUR ---
dr. mcnulty present in patients room will continue care and follow up if any new orders.
--- NOTE | 2019-02-18 18:35 | NUR ---
HEMODIALYSIS COMPLETED. OUTPUT WAS 1000 ML. PT TOLERATED WELL. VSS.
--- NOTE | 2019-02-18 19:10 | NUR ---
report given to night nurse george for continuity of care. patient is in stable condition. vvs.
--- NOTE | 2019-02-18 19:15 | NUR ---
RECEIVED REPORT FROM DAYSHIFT NURSES AT PATIENTS BEDSIDE. NO DISTRESS NOTED AT THIS TIME, WILL CARRY OUT.
--- NOTE | 2019-02-18 19:55 | NUR ---
RECEIVED PATIENT RESTING WELL IN BED, PATIENT IS ANOx1, PATIENT RESPONDS TO VOICE/NAME, WAVES HANDS/FOLLOWS SIMPLE COMMANDS. PT IS BLIND AND OPENS EYES TO VOICE. HR-108, N7WEO-21%, BP-102/66, RR-18, CVP-4. RIJ CENTRAL LINE IN PLACE, INTACT AND PATENT, INFUSING PROPOFOL 25 MCG/KG-14.25 ML/HR, FENTANYL 100MCG/HR-10ML/HR. RASS -3 OBSERVED. DRY WEIGHT 95 KG. PT IS ETT TO VENT, SETTINGS ACVC 30%, TV 500, RATE 18, PEEP 5. BREATHING IS UNLABORED, LUNG SOUNDS CLEAR. S1S2, SINUS TACHYCARDIA ON MONITOR. BOWEL SOUNDS ACTIVE, ABDOMEN SOFT, NONTENDER. NGT RIGHT NARE- TO FEEDING, 35ML/HR, POSITIVE PLACEMENT CONFIRMED BY AUSCULTATION. PATIENT IS DIAPHORETIC ON HEAD, NECK, FACE, NO FEVER-97.7. LEFT WRIST FISTULA. PATIENT DENIES PAIN AT THIS TIME. HOB 30 DEGREES, SIDERAILS UP, BED LOCKED AND IN LOWEST POSITION.
[2019-02-18] MEDS: SIMVASTATIN 40 MG TAB PO SCH (20:33)
--- NOTE | 2019-02-18 20:34 | NUR ---
CALLED DR. ALONZO TO CLARIFY RASS SCORE ORDERS, WILL CHANGE TO RASS -3 PER ANTICIPATED EXTUBATION IN THE MORNING
--- NOTE | 2019-02-18 21:55 | NUR ---
TITRATED FENTANYL DOWN TO 9ML/HR-90 MCG/KG/HR. PATIENT TOLERATING WELL, PATIENT REDIRECTED, COMMUNICATES BY GESTURES AND NODDING, PATIENT UNDERSTANDS TREATMENT PLAN.
--- NOTE | 2019-02-18 22:20 | NUR ---
DR. ALONZO & RESIDENTS IN TO ASSESS PATIENT, PATIENT'S BROTHER AT THE BEDSIDE. DR. ALONZO CONFIRMED NEW ORDER FOR RASS SCORE -2.
--- NOTE | 2019-02-18 23:35 | NUR ---
PATIENT REQUESTING WATER, PROVIDED ORAL CARE, TOLERATED WELL. DECREASED FENTANYL TO 9ML/HR. DENIES PAIN. WILL CONTINUE TO MONITOR.
[2019-02-19] VITALS (57 sets, daily range): BP systolic 74–166; BP diastolic 34–94
[2019-02-19] MEDS: MORPHINE SULFATE 2 MG/ML SYR IVP PRN (00:20)
[2019-02-19] MEDS ORDERED: MORPHINE SULFATE 2 MG/ML SYR ONE (00:27)
--- NOTE | 2019-02-19 00:40 | NUR ---
PATIENT HAD LARGE LOOSE STOOL, CLEANED AND PROVIDED SKIN CARE, REPOSITIONED FOR COMFORT AND TO OFFLOAD PRESSURE SITES. PATIENT TOLERATED WELL.
--- NOTE | 2019-02-19 02:00 | NUR ---
PATIENT IS BECOMING SLIGHTLY AGITATED, SHAKES FEET, MOVES HANDS AROUND, AND IS GRIMACING. HEART RATE IS SLIGHTLY TACHYCARDIC-103, BREATHING IS UNLABORED. INCREASE PROPOFOL FOR COMFORT, WILL REASSESS.
[2019-02-19] MEDS: PROPOFOL 1000 MG/100 ML PREMIX 100 ML IV PRN ×2 (02:53→07:46)
--- NOTE | 2019-02-19 04:09 | NUR ---
PATIENT HAS BEEN MORE ALERT, EXPRESSING HE WANTS THE ETT REMOVED, KICKED HIS FEET SEVERAL TIMES, THROWS HANDS UP REPEATEDLY, GRIMACES. PATIENT HAS BEEN REDIRECTED AND EXPLAINED THE PLAN FOR WEANING/EXTUBATION IN THE MORNING, PATIENT NODS HEAD YES THAT HE UNDERSTANDS BUT GESTURES HE IS VERY UNCOMFORTABLE AND WANTS THE TUBE OUT NOW. PROPOFOL IS INCREASED TO 50MCG-28.5 ML/HR. PATIENT TOLERATING WELL, RESTING COMFORTABLY IN BED, RASS -2. WILL CONTINUE TO MONITOR
--- NOTE | 2019-02-19 05:45 | NUR ---
PATIENT IS PROVIDED ORAL CARE-VAP PROTOCOL, SPONGE BATH AND MAXIMINO CARE. LINENS AND GOWN CHANGED. PATIENT TOLERATED FAIRLY. PATIENT IS MORE ALERT DUE TO AROUSAL, STARTING TO SMACK CHEST WITH HIS HANDS, HES SHAKING HIS LEGS AND BODY, HES WAVING HANDS AROUND. TITRATED HIS FENTANYL UP TO 8ML/HR. BLOOD PRESSURE STABLE, HEART RATE 90'S. WILL CONTINUE TO REDIRECT.
[2019-02-19 06:07] LABS: HEPATITIS A ANTIBODY IGM Negative (Negative); HEPATITIS B CORE AB TOTAL Negative (Negative); HEPATITIS B SURFACE ANTIBODY Reactive (.); HEPATITIS B SURFACE ANTIGEN Negative (Negative)
[2019-02-19 06:15] LABS: ANION GAP 16.2 (8-16); CARBON DIOXIDE 27.6 mmol/L (21-32); POTASSIUM 4.8 mmol/L (3.5-5.1)
[2019-02-19 06:18] LABS: CREATININE 9.9 mg/dL (0.7-1.3)
--- NOTE | 2019-02-19 06:23 | NUR ---
rec'd pt on carescape vent settings ac 18 vt 500 peep 5 fio2 30% alarms on and audible and ambu bag at hob sxn pt small amt of clear secretions, b\s are clear bilaterally pt is agitated with sedation, pt is orally intubated with 8.0 et tube secured with anchor fast at 24 cm and skin integrity is intact Addendum: 02/19/19 at 0715 by Marianna Ambrose RT vent is plugged into red outlet
[2019-02-19] MEDS: PIPER/TAZO 2.25GM/D5W PREMIX 50 ML IV SCH ×3 (06:24→20:39)
[2019-02-19 06:28] LABS: MAGNESIUM 2.1 mg/dL (1.8-2.4); PHOSPHORUS 6.5 mg/dL (2.5-4.9)
[2019-02-19] MEDS: LEVOTHYROXINE 0.088 MG TAB PO SCH (06:34)
--- NOTE | 2019-02-19 07:05 | NUR ---
REPORT GIVEN BY NIGHT NURSE REMY. STATES PATIENT HAS BEEN WEANING OFF OF FENTANYL DURING NIGHT FOR WEANING ORDERS OF EXTUBATION. STATES TO CONTINUE SEDATION VACATIONS TODAY. PATIENT APPEARS AGITATED BY RESTLESS LEGS AND WINCING FACIAL EXPRESSION. ABLE TO COMMUNICATE BY GESTURES AND FOLLOW COMMANDS. PATIENT STATES THROUGH GESTURES NO PAIN JUST FRUSTRATION. PATIENT NODS HEAD TO WANTING TUBE OUT. PATIENT SKIN COLOR PINK AND DRY. SKIN INTACT. NO OPEN WOUNDS NOTED. NG TUBE TO R NARES PATENT AND PLACEMENT IN PLACE. NEPRO 35ML/HR WITH WATER FLUSH OF 10 ML Q6H. CENTRAL LINE IN R IJ INTACT. ASYMPTOMATIC TO INFECTION, ALL 3 LUMENS PATENT. DIALYSIS WAS YESTERDAY. OUTPUT 1 L. PATIENT ABDOMEN SOFT AND ROUND WITH NO DISTENSION NOTED. HEELS DRY AND SKIN INTACT. HEEL PROTECTORS PRESENT. SOFT WRIST RESTRAINTS ON BOTH UPPER EXTREMITIES AND SKIN INTACT. PATIENT HAS LFA FISTULA PRESENT FOR DIALYSIS. TRILL PALPATED. PROPOFOL RUNNING AT 50MCG/KG/HR WITH A DRY WEIGHT OF 95KG. FENTANYL RUNNING AT 60 MCG/HR. STATES LAST BM WAS 0040 AND WAS A LARGE LOOSE STOOL. CVP 7. NO FEVER THROUGHOUT NIGHT. 118/77-97-95%-18 TEMP. 97.9. FI02 30.VT 500. RR 18. FLOW 40. PEEP 5. SIDE RAILS UP. BED IN LOWEST POSITION. SAFETY MEASURES IN PLACE.
--- NOTE | 2019-02-19 07:15 | NUR ---
REPORT GIVEN TO DAYSHIFT NURSES FOR CONTINUITY OF CARE. PATIENT IN BED, AGITATED WITH ETT, WILL CONTINUE TO REDIRECT. VSS.
[2019-02-19] MEDS: BLOOD GLUCOSE MONITORING 1 DEV DEV FS SCH ×4 (07:37→20:39)
[2019-02-19] MEDS: INSULIN LISPRO SLIDING SCALE 100 UNITS/ML VIAL SUBQ PRN ×4 (07:44→20:54)
[2019-02-19] MEDS: CARVEDILOL 12.5 MG TAB PO SCH ×2 (08:05→17:06)
[2019-02-19] MEDS: PANTOPRAZOLE 40 MG INJ VIAL IVP SCH (08:05)
[2019-02-19] MEDS: CALCIUM ACETATE 667 MG TAB PO SCH ×3 (08:05→17:07)
[2019-02-19] MEDS: ASPIRIN 81 MG TAB.CHEW PO SCH (08:06)
[2019-02-19] MEDS: VIT-B COMP/VIT-C/FOLIC ACID 1 TAB PO SCH (08:06)
[2019-02-19] MEDS: CYCLOBENZAPRINE 10 MG TAB PO SCH ×3 (08:06→17:07)
[2019-02-19] MEDS: CINACALCET 30 MG TAB PO SCH (08:07)
--- NOTE | 2019-02-19 08:15 | NUR ---
DR. MAGALLANES PRESENT. REORDERED ZOSYN AND RESTRAINT ORDER.
[2019-02-19 08:25] LABS: BASOPHILS # (AUTO) 0.1 K/uL (0.00-0.22); BASOPHILS % (AUTO) 0.6 % (0.0-2.0); EOSINOPHILS # (AUTO) 0.6 K/uL (0-0.4); EOSINOPHILS % (AUTO) 7.2 % (0.0-4.0); HEMOGLOBIN 12.7 g/dL (12.0-18.0); LYMPHOCYTES # (AUTO) 1.4 K/uL (2.0-11.5); LYMPHOCYTES % (AUTO) 16.9 % (20.5-51.1); MEAN CORPUSCULAR HEMOGLOBIN 29 pg (27-31); MEAN CORPUSCULAR HGB CONC 33 g/dL (33-37); MEAN CORPUSCULAR VOLUME 89.8 fL (80-94); MONOCYTES # (AUTO) 1.1 K/uL (0.8-1.0); MONOCYTES % (AUTO) 13.1 % (1.7-9.3); NEUTROPHILS % (AUTO) 62.2 % (42.2-75.2); PLATELET COUNT (AUTO) 215 K/uL (140-450); RED BLOOD CELL COUNT(AUTO) 4.34 MIL/uL (4.20-6.10); RED CELL DISTRIBUTION WIDTH 15.9 % (11.6-13.7); WHITE BLOOD COUNT (AUTO) 8.1 K/uL (4.8-10.8)
--- NOTE | 2019-02-19 08:45 | NUR ---
SEDATION VACATION STARTED. RT AWARE. SOFT RESTRAINTS IN PLACE. VVS. PATIENT NOTIFIED OF POC. WILL CONTINUE TO MONITOR.
--- NOTE | 2019-02-19 08:55 | NUR ---
pt placed on cpap 5 ps 12 and is very agitated Addendum: 02/19/19 at 1047 by Marianna Ambrose RT PS 10
--- NOTE | 2019-02-19 10:05 | NUR ---
DR. ARTEAGA IN PATIENT ROOM WITH DR. MAGALLANES. EXPLAINING PLAN OF CARE TO PATIENT.
--- NOTE | 2019-02-19 10:30 | NUR ---
RT IN ROOM. DRAWING ABGS. EXPLAINED PROCEDURE TO PATIENT.
--- NOTE | 2019-02-19 14:16 | NUR ---
RT IN ROOM. TESTING PATIENT FOR WEANING AT THIS TIME. PATIENT TOLERATING WELL. IMPROVEMENT.
--- NOTE | 2019-02-19 14:38 | NUR ---
SPOKE WITH DR ARTEAGA AND GAVE HER WEANING PARAMETERS, NIF -24, VC 1037, RSBI 31, DR ARTEAGA WOULD LIKE PT EXTUBATED IF AIR-LEAK IS PRESENT WHEN CUFF IS SLIGHTLY DEFLATED, BREATHING TX GIVEN VIA EZ-PAP AND IS STARTED, CHARGE AND RN AWARE.
--- NOTE | 2019-02-19 15:45 | NUR ---
CALLED DR. MAGALLANES WHO STATES SHE WILL PUT IN ORDERS FOR EXTUBATION D/T RT STATING SHE GOT VERBAL ORDER FROM DR. ARTEAGA IF WITHIN PARAMETERS. ALSO STATES SHE WILL ORDER A ONE TIME ABG DRAW FOR 30 MINUTES AFTER EXTUBATION, AN INCENTIVE SPIROMETER, AND BREATHING TREATMENT WITH EZPAP. STATES SHE WILL CANCEL THE SEDATIONS AND NO SEDATIVE NEEDED FOR EXTUBATION. READ BACK TO DR. MAGALLANES AND CONFIRMED CORRECT.
--- NOTE | 2019-02-19 15:45 | NUR ---
RT STATES PARAMETERS FOR EXTUBATION ARE WITHIN THE LIMITS. RT STATES GOT VERBAL ORDER FROM DR. ARTEAGA TO EXTUBATE IF WITHIN THE PARAMETERS. WILL CALL DR. MAGALLANES FOR ORDERS.
--- NOTE | 2019-02-19 16:01 | NUR ---
LATE ENTRY: PER HOOD FITTER HOLD OFF ON [address] ARTEAGA SAYS TO DRAW IT AND WEANING PARAMETERS ARE IMPROVED.
[2019-02-19] MEDS ORDERED: ALBUTEROL SULFATE/IPRATROPIU 3 ML SOL IH PRN (16:05)
--- NOTE | 2019-02-19 16:30 | NUR ---
dr. mosher present. will follow up if any changes
--- NOTE | 2019-02-19 16:30 | NUR ---
patient orders to be extubated. vs prior to extubation. 130/85--cvp 8-12-100%-91. patient was explained procedure. patient able to follow commands and tolerated well. patient no s/s of distress.
--- NOTE | 2019-02-19 16:35 | NUR ---
patient working with rt. tolerating extubation well. 125/13-92-09-100%cvp 10. patient denies pain. able to communicate verbally. family notified by charge nurse jerry. will continue to follow extubation orders and poc.
--- NOTE | 2019-02-19 16:50 | NUR ---
per rt, patient is 1500 on incentive spirometer. tolerating well. patient understands by demonstration
--- NOTE | 2019-02-19 17:10 | NUR ---
PT EXTUBATED AT [address] ARTEAGA VERBAL ORDER. PT VITALS HR 91, RR 11, BP 125/82, SPO2 100%. EZPAP TX GIVEN AFTER EXTUBATION. PT ABE WELL. PLACED PLACED ON 2L NC SPO2 100%. PT ABE EXTUBATION WELL, NO SIGN OF SOB NOTED AT THIS TIME. VERBAL AND DEMONSTRATION OF IS GIVEN. PT HAD GOOD EFFORT. SPOKE WITH DR ARTEAGA AFTER EXTUBATION.
--- NOTE | 2019-02-19 17:50 | NUR ---
rt in room with patient who is able to follow commands and express concerns. rt is training on the incentive spirometer. patient understands by demonstration and verbal understanding
--- NOTE | 2019-02-19 17:55 | NUR ---
dr. link present. updated him on patients status. will follow up if any changes. continue poc.
--- NOTE | 2019-02-19 18:10 | NUR ---
per dr. link. order for dialysis tomorrow. charge nurse called dialysis (haylee). leach aware of orders in place.
--- NOTE | 2019-02-19 18:23 | NUR ---
PT DEMONSTRATED IS - 1800, 2750 is PREDICTED.
--- NOTE | 2019-02-19 18:36 | NUR ---
md shanks present. notified of patient situation. states will dc cvp monitoring. patient vss. no s/s of distress. will follow up with orders. will continue to monitor patient.
[2019-02-19] MEDS: ALBUTEROL SULFATE/IPRATROPIU 3 ML SOL IH SCH (19:24)
--- NOTE | 2019-02-19 19:30 | NUR ---
RECEIVED BEDSIDE REPORT FROM MORNING SHIFT RN, HUNTER/TAPAN. PT IS AWAKE,AAOX4, ABLE TO RESPOND TO COMMANDS, CALM/COOPERATIVE. VSS, BP 135/71, RR 15, HR 86, SATING 96%, TEMP 97.1 AFEBRILE. 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 LUNG SOUNDS CLEAR ON BILATER UPPER/LOWER LOBES. PT COUGHS OF PHLEGM INTERMITTENTLY. RT CICI AT BEDSIDE TO ADMINISTER BREATHING TREATMENT. NGT TO RIGHT NARES, PT NPO EXCEPT MEDS, NO FEEDING AT THIS TIME. PT IS ANURIC, NO BENNETT IN PLACE. PT DENIES PAIN/NAUSEA AT THIS TIME. PT HAS LFA FISTULA, COVERED WITH DRESSING AND RIJ CENTRAL LINE INFUSING NS AT 10CC/HR. SKIN IS DRY/INTACT, NORMAL IN COLOR. ABLE TO MOVE UPPER/LOWER EXTREMITIES IN BED. Addendum: 02/20/19 at 0739 by Michelle Bah RN 2L N/C AT THIS TIME.
--- NOTE | 2019-02-19 19:30 | NUR ---
REPORT GIVEN TO SHRUB GROWER RN FOR CONTINUITY OF CARE. PT IS IN STABLE CONDITION.
--- NOTE | 2019-02-19 19:43 | NUR ---
RECEIVED PATIENT ON 2L NASAL CANNULA, PULSE OX SAT 97%. SCHEDULED BREATHING TREATMENT ADMINISTERED WITH EZPAP MODALITY. TOLERATED TX WELL, NO ADVERSE SIDE EFFECTS. PLACED PT BACK ON 2L NC. INCENTIVE SPIROMETRY PERFORMED WITH GOOD EFFORT. GOOD COUGH EFFORT DEMONSTRATED. SPONTANEOUSLY EXPECTORATED SMALL AMOUNT OF THICK, WHITE SECRETIONS. NO RESPIRATORY DISTRESS NOTED AT THIS TIME. WILL CONTINUE TO MONITOR.
--- NOTE | 2019-02-19 20:03 | NUR ---
DR. AMADO AT BEDSIDE TO SEE PATIENT.
[2019-02-19] MEDS: SIMVASTATIN 40 MG TAB PO SCH (20:39)
--- NOTE | 2019-02-19 20:50 | NUR ---
PT REPOSITIONED ABLE TO PULL HIMSELF UP IN BED, PILLOW SUPPORT PROVIDED, AND LEGS ELEVATED, HEEL PROTECTORS ON BILATERAL LEGS. PT IN BED DOING ARM STRETCHES, DENIES PAIN AT THIS TIME. PHONE PROVIDED TO PT AT BEDSIDE TO MAKE PHONE CALL TO FAMILY.
[2019-02-19] MEDS ORDERED: MELATONIN 3 MG TAB PO PRN (21:20)
--- NOTE | 2019-02-19 22:20 | NUR ---
PT WITH COMPLAINTS OF SLEEPLESSNESS AT THIS TIME, DR FRY AWARE NEW ORDER FOR AMBIEN GIVEN.
[2019-02-19] MEDS ORDERED: ZOLPIDEM 5 MG TAB PO SCH (22:30)
--- NOTE | 2019-02-19 23:02 | NUR ---
FAMILY AT BEDSIDE TO SEE PATIENT.
[2019-02-20] VITALS (11 sets, daily range): BP systolic 105–149; BP diastolic 68–93
--- NOTE | 2019-02-20 01:30 | NUR ---
PT SLEEPS AND WAKES UP INTERMITTENTLY, SUCTIONS PHLEGM HIMSELF, HOB ELEVATED AT 30 DEG. PT REQUEST TO KEEP TV ON STATED IT HELPS HIM GO TO SLEEP, STATES HE USUALLY HAS TROUBLE SLEEPING DURING THE NIGHT. ORAL MOUTH SWABS PROVIDED PER PT REQUEST. ABLE TO REPOSITION HIMSELF IN BED. PT VERBALIZES UNDERSTANDING OF PLAN TO SEE PHYSICAL THERAPY AND COMPLETE SWALLOW EVALUATIONS IN THE AM.
[2019-02-20] MEDS: ALBUTEROL SULFATE/IPRATROPIU 3 ML SOL IH SCH ×4 (03:47→20:06)
--- NOTE | 2019-02-20 04:49 | NUR ---
MALCOLM FROM RAD AT BEDSIDE TO COMPLETE XRAY.
[2019-02-20] MEDS: PIPER/TAZO 2.25GM/D5W PREMIX 50 ML IV SCH ×2 (04:57→12:24)
--- NOTE | 2019-02-20 05:19 | NUR ---
WARM WATER AND WASH CLOTH PROVIDED TO PATIENT AT BEDSIDE, STANDY BY ASSIST X1. ASSISTED PT IN MAKING PHONE CALLS TO MOTHER, MOTHER PLAN TO COME BY AROUND 8AM. PT AWARE OF DIALYSIS PLANNED THIS MORNING.
[2019-02-20 06:28] LABS: ANION GAP 22.9 (8-16); CARBON DIOXIDE 24.8 mmol/L (21-32); POTASSIUM 5.7 mmol/L (3.5-5.1)
--- NOTE | 2019-02-20 06:31 | NUR ---
DR. MAGALLANES AT BEDSIDE TO SEE PATIENT, PT AWAKE AND COOPERATIVE.
[2019-02-20 06:32] LABS: PHOSPHORUS 6.9 mg/dL (2.5-4.9)
[2019-02-20 06:44] LABS: CREATININE 12.5 mg/dL (0.7-1.3)
[2019-02-20] MEDS: LEVOTHYROXINE 0.088 MG TAB PO SCH (07:04)
[2019-02-20 07:18] LABS: BASOPHILS # (AUTO) 0.1 K/uL (0.00-0.22); BASOPHILS % (AUTO) 0.8 % (0.0-2.0); EOSINOPHILS # (AUTO) 0.6 K/uL (0-0.4); HEMATOCRIT 37.3 % (36-52); HEMOGLOBIN 12.1 g/dL (12.0-18.0); LYMPHOCYTES # (AUTO) 1.2 K/uL (2.0-11.5); LYMPHOCYTES % (AUTO) 13.6 % (20.5-51.1); MEAN CORPUSCULAR HEMOGLOBIN 29 pg (27-31); MEAN CORPUSCULAR HGB CONC 33 g/dL (33-37); MEAN CORPUSCULAR VOLUME 88.6 fL (80-94); MONOCYTES # (AUTO) 0.9 K/uL (0.8-1.0); MONOCYTES % (AUTO) 10.8 % (1.7-9.3); NEUTROPHILS # (AUTO) 5.9 K/uL (1.8-7.7); NEUTROPHILS % (AUTO) 67.8 % (42.2-75.2); PLATELET COUNT (AUTO) 227 K/uL (140-450); RED BLOOD CELL COUNT(AUTO) 4.21 MIL/uL (4.20-6.10); RED CELL DISTRIBUTION WIDTH 15.6 % (11.6-13.7); WHITE BLOOD COUNT (AUTO) 8.7 K/uL (4.8-10.8)
[2019-02-20] MEDS: BLOOD GLUCOSE MONITORING 1 DEV DEV FS SCH ×4 (07:33→21:00)
--- NOTE | 2019-02-20 07:33 | NUR ---
REPORT GIVEN TO MORNING SHIFT RIMA BARTLETT.
--- NOTE | 2019-02-20 08:00 | NUR ---
PATIENT AWAKE, ORIENTED TO SELF, TIME, SITUATION, PLACE. SINUS RHYTHM ON MONITOR, NO COMPLAINTS OF PAIN, ON ROOM AIR SO2 100%, WITH NG TUBE AT RIGH NARES, NPO EXCEPT MEDICATIONS, NGT PATENT ON AUSCULTATION, NO GASTRIC RESIDUAL, SOFT ABDOMEN, ANURIC, WITH AV FISTULA AT LEFT ARM, POSITIVE BRUIT AND THRILL, RIGHT IJ TRIPLE LUMEN CENTRAL SALINE LOCKED AND SITE ASYMPTOMATIC, SKIN INTACT. CALL BRANNON WITHIN REACH WILL CONTINUE TO MONITOR
[2019-02-20] MEDS: CARVEDILOL 12.5 MG TAB PO SCH ×2 (08:36→17:00)
[2019-02-20] MEDS: CALCIUM ACETATE 667 MG TAB PO SCH ×3 (08:36→16:13)
[2019-02-20] MEDS: PANTOPRAZOLE 40 MG INJ VIAL IVP SCH (09:20)
[2019-02-20] MEDS: VIT-B COMP/VIT-C/FOLIC ACID 1 TAB PO SCH (09:21)
[2019-02-20] MEDS: ASPIRIN 81 MG TAB.CHEW PO SCH (09:21)
--- NOTE | 2019-02-20 09:30 | NUR ---
LEFT A MESSAGE FOR DIALYSIS NURSE TO CALL BACK FOR POTASSIUM LEVEL TODAY 5.7 TO ADJUST DIALYSIS SCHEDULE. NO PATIENT NAME GIVEN. DR. MAGALLANES MADE AWARE
[2019-02-20] MEDS: CYCLOBENZAPRINE 10 MG TAB PO SCH ×3 (09:36→16:13)
[2019-02-20] MEDS: CINACALCET 30 MG TAB PO SCH (09:37)
[2019-02-20] MEDS: DEXT 5% / NACL 0.45% 500 ML IV SCH (12:17)
--- NOTE | 2019-02-20 14:33 | NUR ---
02/20/19 RD RECOMMENDATIONS NUTRITION FOLLOW UP COMPLETED PLEASE REFER TO NUTRITION ASSESSMENT UNDER CARE ACTIVITY FOR ESTIMATED NUTRITIONAL NEEDS. 1. RECOMMEND A RENAL, K2, LOW PHOSPHOROUS, AND CCHO 60 GM DIET FOLLOWING SWALLOW EVALUATION RECOMMENDATIONS FOR FOOD TEXTURE AND LIQUID CONSISTENCY 2. RD PROVIDED PATIENT AND FAMILY RENAL DIET EDUCATION 3. RD TO FOLLOW-UP 3-5 DAYS, MODERATE RISK ARLETH CAMACHO, RD
--- NOTE | 2019-02-20 14:45 | NUR ---
DR. NICOLE AT BEDSIDE AND ORDERED TO DO BEDSIDE SWALLOW EVALUATION. PATIENT GIVEN APPLE SAUCE BY THIS RN WHILE HIS HEAD OF BED UP 90 DEGREES. PATIENT IS VERY AWAKE ABLE TO EAT WITH MINIMUM ASSISTANCE. NG TUBE WAS REMOVED ORDERED BY DR. NICOLE. WILL CONTINUE TO MONITOR
[2019-02-20] MEDS ORDERED: LEVOFLOXACIN 500 MG/D5W PREMIX 100 ML IV SCH (16:00)
--- NOTE | 2019-02-20 16:00 | NUR ---
DUE COREG NOT GIVEN PATIENT IS FOR DIALYSIS. LEVAQUIN NOT GIVEN PATIENT IS FOR DIALYSIS, PHARMACIST DONTE COLMENARES
[2019-02-20] MEDS: INSULIN LISPRO SLIDING SCALE 100 UNITS/ML VIAL SUBQ PRN ×2 (16:15→21:13)
--- NOTE | 2019-02-20 16:30 | NUR ---
DEPENDENCY CASE MANAGER HERE AND STARTED DIALYSIS
--- NOTE | 2019-02-20 19:57 | NUR ---
RECEIVED BEDSIDE REPORT FROM MORNING SHIFT RN TRI. ENERGY TECHNICIAN, CHELO CLAROS, AT BEDSIDE. PT IS AWAKE, AAOX4, ABLE TO MAKE NEEDS KNOWN/CALM/COOPERATIVE. VSS BP 134/87, SATING 100%, TEMPORAL TEMP 97.1, RR 14. ON ROOM AIR, LUNG SOUNDS CLEAR ON UPPER/LOWER BILATERAL LOBES. BOWEL SOUNDS ACTIVEX4, NO NGT IN PLACE, PT ON PUREE DIET. ANURIC, NO BENNETT IN PLACE. PT HAS RIGHT IJ CENTRAL LINE IN PLACE, LFA FISTULA FOR DIALYSIS ACCESS. SKIN INTACT. ENERGY TECHNICIAN STATED REMOVED 2L FLUID. HOB ABOVE 40 DEG, STANDARD AND FALL RISK PRECAUTIONS MAINTAINED, SIDE RAILS UP X4, CALL LIGHT WITHIN REACH.
--- NOTE | 2019-02-20 20:08 | NUR ---
DIALYSIS COMPLETED, RT CICI AT BEDSIDE WITH PT PERFORMING INCENTIVE SPIROMETRY.
--- NOTE | 2019-02-20 20:15 | NUR ---
RECEIVED PATIENT ON ROOM AIR, PULSE OX SAT 98%. SCHEDULED BREATHING TREATMENT ADMINISTERED. TOLERATED TX WELL, NO ADVERSE SIDE EFFECTS. NO RESPIRATORY DISTRESS NOTED AT THIS TIME. PULSE OX PROBE AND SITE CHANGED. WILL CONTINUE TO MONITOR.
[2019-02-20] MEDS: SIMVASTATIN 40 MG TAB PO SCH (20:29)
[2019-02-20 20:37] LABS: ANION GAP 20.4 (8-16); CARBON DIOXIDE 25.4 mmol/L (21-32); POTASSIUM 3.8 mmol/L (3.5-5.1)
[2019-02-20 20:40] LABS: CREATININE 7.6 mg/dL (0.7-1.3)
--- NOTE | 2019-02-20 20:59 | NUR ---
PT FAMILY AT BEDSIDE AT THIS TIME. PT ATE SMALL AMOUNT OF DINNER = 10%, ADVISED NOT TO EAT POTATOES SO REFUSED MASHED POTATOES, ATE SMALL AMOUNT OF SHERBET AND 1/2 CUP CRANBERRY JUICE. PT VISUALLY IMPAIRED, ASSIST X1 WITH FEEDING.
--- NOTE | 2019-02-20 22:00 | NUR ---
REPORT RECEIVED FROM ICU NURSE AT BEDSIDE. PT IN STABLE CONDITION. AAOX4. INTRODUCED SELF TO PT AND FAMILY. BOARD UPDATED. NO COMPLAINTS OF PAIN. NO SOB. AFEBRILE. PT IS ABLE TO AMBULATE WITH ASSIST. PT IS LEGALLY BLIND. PT HAS L FOREARM AV SHUNT. IV SITE R IJ TRIPLE LUMEN RUNNING NS@10ML/HR PATENT AND INTACT. SKIN WARM, DRY, AND INTACT WITH NO OPEN WOUNDS BUT SACRAL REDNESS. BED LOCKED IN LOW POSITION. CALL BRANNON WITHIN REACH. FAMILY AT BEDSIDE. SAFETY PRECAUTIONS IN PLACE.
[2019-02-21] VITALS: BP 120/77
--- NOTE | 2019-02-21 00:30 | NUR ---
PT WATCHING TV WITH DAUGHTER AT BEDSIDE. NO S/S OF DISTRESS NOTED. NO COMPLAINTS OF PAIN. NO SOB. AFEBRILE. WILL CONTINUE TO MONITOR.
[2019-02-21] MEDS: ALBUTEROL SULFATE/IPRATROPIU 3 ML SOL IH SCH ×4 (01:30→19:07)
--- NOTE | 2019-02-21 02:15 | NUR ---
PT SLEEPING COMFORTABLY WITH FAMILY AT BEDSIDE. NO S/S OF DISTRESS NOTED. WILL CONTINUE TO MONITOR.
[2019-02-21 04:00] VITALS: BP 124/76
--- NOTE | 2019-02-21 04:00 | NUR ---
PT HAS COMPLAINTS OF IV PUMP ALARM. NO S/S OF DISTRESS NOTED. VS STABLE. WILL CONTINUE TO MONITOR.
[2019-02-21] MEDS: LEVOTHYROXINE 0.088 MG TAB PO SCH (05:33)
--- NOTE | 2019-02-21 05:33 | NUR ---
SYNTHROID GIVEN PO. BS 130. NO INSULIN COVERAGE NEEDED. PT TOLERATED WELL.
[2019-02-21] MEDS: BLOOD GLUCOSE MONITORING 1 DEV DEV FS SCH ×4 (05:50→20:19)
[2019-02-21] MEDS: DEXT 5% / NACL 0.45% 500 ML IV SCH ×2 (06:21→06:23)
--- NOTE | 2019-02-21 07:10 | NUR ---
REPORT GIVEN TO AM NURSE AT BEDSIDE. PT IN STABLE CONDITION.
[2019-02-21 07:20] LABS: MAGNESIUM 1.9 mg/dL (1.8-2.4); PHOSPHORUS 6.9 mg/dL (2.5-4.9)
[2019-02-21 07:38] LABS: ANION GAP 24.4 (8-16); BASOPHILS % (AUTO) 0.6 % (0.0-2.0); CARBON DIOXIDE 22.6 mmol/L (21-32); EOSINOPHILS # (AUTO) 0.5 K/uL (0-0.4); HEMATOCRIT 35.8 % (36-52); HEMOGLOBIN 11.7 g/dL (12.0-18.0); LYMPHOCYTES % (AUTO) 13.9 % (20.5-51.1); MEAN CORPUSCULAR HEMOGLOBIN 29 pg (27-31); MEAN CORPUSCULAR HGB CONC 33 g/dL (33-37); MEAN CORPUSCULAR VOLUME 87.9 fL (80-94); MONOCYTES # (AUTO) 0.9 K/uL (0.8-1.0); MONOCYTES % (AUTO) 12.3 % (1.7-9.3); NEUTROPHILS # (AUTO) 4.7 K/uL (1.8-7.7); NEUTROPHILS % (AUTO) 66.2 % (42.2-75.2); PLATELET COUNT (AUTO) 228 K/uL (140-450); RED BLOOD CELL COUNT(AUTO) 4.07 MIL/uL (4.20-6.10); RED CELL DISTRIBUTION WIDTH 15.5 % (11.6-13.7); WHITE BLOOD COUNT (AUTO) 7.1 K/uL (4.8-10.8)
[2019-02-21 08:00] VITALS: BP 125/74
[2019-02-21 08:01] LABS: CREATININE 9.6 mg/dL (0.7-1.3)
[2019-02-21] MEDS ORDERED: ERGOCALCIFEROL 50,000 IU CAP PO SCH (09:00)
[2019-02-21] MEDS: PANTOPRAZOLE 40 MG INJ VIAL IVP SCH (09:10)
[2019-02-21] MEDS: CARVEDILOL 12.5 MG TAB PO SCH ×2 (09:10→16:33)
[2019-02-21] MEDS: CINACALCET 30 MG TAB PO SCH (09:10)
[2019-02-21] MEDS: VIT-B COMP/VIT-C/FOLIC ACID 1 TAB PO SCH (09:11)
[2019-02-21] MEDS: CYCLOBENZAPRINE 10 MG TAB PO SCH ×3 (09:11→16:33)
[2019-02-21] MEDS: ASPIRIN 81 MG TAB.CHEW PO SCH (09:11)
[2019-02-21] MEDS: CALCIUM ACETATE 667 MG TAB PO SCH ×3 (09:11→16:17)
--- NOTE | 2019-02-21 09:13 | NUR ---
DID BEDSIDE SWALLOW EVAL, PATIENT ABLE TO TOLERATE PO WELL. DR. MAGALLANES AWARE.
--- NOTE | 2019-02-21 11:05 | NUR ---
voicemail message left to [facility] regarding pt's HD order for tomorrow. tel#: [phone]. awaiting for call back. Dalila assigned made aware.
--- NOTE | 2019-02-21 11:09 | NUR ---
PATIENT AAOX4, AFEBRILE, VITALS STABLE.
[2019-02-21 12:00] VITALS: BP 124/75
--- NOTE | 2019-02-21 13:12 | NUR ---
PATIENT'S FAMILY AT BEDSIDE
--- NOTE | 2019-02-21 14:57 | NUR ---
CALLED ARIADNE AT [employer] [phone] NOTIFIED HER REGARDING THE D/C PLAN WITH HOME HEALTH FOR PT. PER ARIADNE ,SHE IS NOT HANDLING D/C PLANNING AND PROVIDED THE CONTACT # FOR D/C [employer]PUTER CONSULTANT NATE [phone] . I CALLED NATE SHE IS AT [place] AT THIS TIME AND LEFT A MESSAGE .
--- NOTE | 2019-02-21 15:37 | NUR ---
I RECEIVED A CALL FROM NATE [facility] [phone] THEY ARE CONTRACTED WITH [facility], [facility] , REINSURANCE CLAIMS ANALYST AND [facility] , WILL FAX PATIENT'S INFORMATION AND ORDER AND FOLLOW UP.
[2019-02-21 16:00] VITALS: BP 127/78
--- NOTE | 2019-02-21 16:11 | NUR ---
VINCENT contacted [facility] and spoke with Tessa [phone]. VINCENT verified fax number with Tessa and faxed clinical information to [phone]. Tessa stated she would verify insurance and call back once she has reviewed clinicals. VINCENT/CARTER will follow up as needed.
--- NOTE | 2019-02-21 17:43 | NUR ---
PATIENT'S MOM AT BEDSIDE, NO SIGNS OF DISTRESS
--- NOTE | 2019-02-21 19:11 | NUR ---
REPORT RECEIVED FROM AM NURSE AT BEDSIDE. PT IN STABLE CONDITION. AAOX4. INTRODUCED SELF TO PT. BOARD UPDATED. NO COMPLAINTS OF PAIN. NO SOB. AFEBRILE. PT IS AMBULATORY WITH ASSIST. PT IS LEGALLY BLIND. PT HAS L FOREARM AV FISTULA. IV SITE R IJ TRIPLE LUMEN SL PATENT AND INTACT. SKIN WARM, DRY, AND INTACT WITH NO OPEN WOUNDS. PT HAS SACRAL REDNESS AND SCABBING. BED LOCKED IN LOW POSITION. CALL BRANNON WITHIN REACH. SAFETY PRECAUTION IN PLACE. ALL NEEDS MET AT THIS TIME.
--- NOTE | 2019-02-21 19:51 | NUR ---
* ST NOTE * Pt seen at bedside w/Nsg and RT present. Pt alert, cooperative and engaged throughout session, reporting no c/o pain at this time. Bedside dysphagia and oral mechanism exams completed. See evaluation report for further details. Pt tolerating 4/4 alternating PO trials of regular solid dinner meal as well as 2/2 alternating PO trials of thin liquid water via a straw, all w/o s/s of aspiration or choking. Pt and caregiver/nsg education completed re: aspiration precautions and safe swallow compensatory strategies pt and caregivers could utilize to aid pt w/swallow function, w/pt demonstrating follow through as trained and nsg verbalizing understanding and agreement. It is thus recommended pt's PO diet consistency remain as regular solids w/thin liquids for all meals, w/aspiration precautions in place. No further ST follow up recommended at this time. Pt and caregiver/nsg education completed re: results of evaluation; benefits of abiding by aspiration precautions; and prognosis for improvement; w/pt and caregiver/nsg verbalizing understanding and agreement w/clinician's recommendations. Recommend: - PO DIET CONSISTENCY OF REGULAR SOLIDS W/THIN LIQUIDS for all meals - WHOLE PILL MEDICATION ADMINISTRATION - MAINTAIN ASPIRATION PRECAUTIONS DURING PT'S PO INTAKE - PT REQUIRES ASSISTANCE/CUEING/SETUP FOR FEEDING - CUE/REMIND PT TO SIT UP AT 70-90 DEGREE ANGLE DURING PO INTAKE; EAT/DRINK SLOWLY; ALTERNATE BTWN SOLIDS & LIQUIDS; AND TAKE SMALL BITES/SIPS No further ST follow up recommended at this time. NOMS Level 1
[2019-02-21 20:00] VITALS: BP 96/51
[2019-02-21] MEDS: SIMVASTATIN 40 MG TAB PO SCH (20:10)
--- NOTE | 2019-02-21 20:10 | NUR ---
ZOCOR GIVEN PO. HEPARIN GIVEN SUBQ. BS 187. 2 UNITS OF HUMALOG GIVEN. PT TOLERATED WELL.
[2019-02-21] MEDS: INSULIN LISPRO SLIDING SCALE 100 UNITS/ML VIAL SUBQ PRN (20:21)
--- NOTE | 2019-02-21 21:20 | NUR ---
PT SLEEPING COMFORTABLY IN BED BUT AROUSABLE. NO S/S OF DISTRESS NOTED. WILL CONTINUE TO MONITOR.
--- NOTE | 2019-02-21 23:10 | NUR ---
PT SLEEPING COMFORTABLY IN BED BUT AROUSABLE. NO S/S OF DISTRESS NOTED. RESPIRATIONS EVEN, UNLABORED, AND WNL. WILL CONTINUE TO MONITOR.
[2019-02-22] VITALS: BP 96/52
[2019-02-22] MEDS: ALBUTEROL SULFATE/IPRATROPIU 3 ML SOL IH SCH ×3 (01:00→13:39)
--- NOTE | 2019-02-22 01:00 | NUR ---
PT AWAKE AND ALERT. VS STABLE. NO S/S OF DISTRESS NOTED. WILL CONTINUE TO MONITOR.
--- NOTE | 2019-02-22 01:20 | NUR ---
PATIENT REFUSED HHN TX. NO SOB OR DISTRESS NOTED. RN AWARE. PT ENCOURAGED TO CALL NURSE IF SOB IS EXPERIENCED.
--- NOTE | 2019-02-22 02:55 | NUR ---
PT SLEEPING BUT AROUSABLE. NO S/S OF DISTRESS NOTED. NO COMPLAINTS OF PAIN. NO SOB. AFEBRILE. WILL CONTINUE TO MONITOR.
[2019-02-22 04:00] VITALS: BP 108/61
--- NOTE | 2019-02-22 04:15 | NUR ---
PT NOTIFIED ME THAT HE HAS PERSONAL ISSUES TO TAKE CARE OF TODAY AND IS WONDERING WHEN HE WILL BE DISCHARGED. MD NOTIFIED OF THE SITUATION. WAS TOLD HE WILL BRING IT UP TO DAY TEAM. NOTIFIED PATIENT OF THE PLAN.
[2019-02-22] MEDS: LEVOTHYROXINE 0.088 MG TAB PO SCH (05:35)
[2019-02-22] MEDS: BLOOD GLUCOSE MONITORING 1 DEV DEV FS SCH ×2 (05:35→11:33)
--- NOTE | 2019-02-22 05:35 | NUR ---
SYNTHROID GIVEN PO. BS 125. NO INSULIN COVERAGE NEEDED.
--- NOTE | 2019-02-22 05:50 | NUR ---
PT MENTIONED THAT HE TAKES OMEPRAZOLE BEFORE BREAKFAST OR HE DOES NOT EAT. MD NOTIFIED.
--- NOTE | 2019-02-22 05:55 | NUR ---
SAID OMEPRAZOLE IS UNAVAILABLE. PT IS CURRENTLY ON PROTONIX. SAID TO GIVE PT PROTONIX EARLY BEFORE BREAKFAST.
--- NOTE | 2019-02-22 07:10 | NUR ---
RECEIVED BEDSIDE REPORT FROM PLUGMAN NURSE, PT IS AWAKE AND ALERT, GETTING A BREATHING TX AT THIS TIME. NO S/S OF ANY ACUTE DISTRESS NOTED. PT IS ON ROOM AIR, SKIN INTACT, SOME REDNESS PRESENT ON THE SACRAL AREA. PT IS LEGALLY BLIND AND HIS EYES ARE CLOUDY. PT HAS A R IJ CENTRAL LINE, TRIPLE LUMEN, SALINE LOCKED. L AV FISTULA IS NOTED FOR DIALYSIS ADMIN. PT IS ANURIC. PT IS ORDERED TO HAVE DIALYSIS TODAY. FALL PRECAUTIONS ARE IN PLACE, CALL LIGHT IS WITHIN REACH. WILL CONTINUE TO MONITOR.
[2019-02-22 07:14] LABS: BASOPHILS # (AUTO) 0.1 K/uL (0.00-0.22); BASOPHILS % (AUTO) 1.3 % (0.0-2.0); EOSINOPHILS # (AUTO) 0.5 K/uL (0-0.4); EOSINOPHILS % (AUTO) 6.9 % (0.0-4.0); HEMATOCRIT 35.9 % (36-52); HEMOGLOBIN 11.7 g/dL (12.0-18.0); LYMPHOCYTES # (AUTO) 1.3 K/uL (2.0-11.5); LYMPHOCYTES % (AUTO) 19.1 % (20.5-51.1); MEAN CORPUSCULAR HEMOGLOBIN 29 pg (27-31); MEAN CORPUSCULAR HGB CONC 33 g/dL (33-37); MEAN CORPUSCULAR VOLUME 88.2 fL (80-94); MONOCYTES # (AUTO) 0.6 K/uL (0.8-1.0); MONOCYTES % (AUTO) 9.3 % (1.7-9.3); NEUTROPHILS # (AUTO) 4.3 K/uL (1.8-7.7); NEUTROPHILS % (AUTO) 63.4 % (42.2-75.2); PLATELET COUNT (AUTO) 231 K/uL (140-450); RED BLOOD CELL COUNT(AUTO) 4.07 MIL/uL (4.20-6.10); RED CELL DISTRIBUTION WIDTH 15.3 % (11.6-13.7); WHITE BLOOD COUNT (AUTO) 6.7 K/uL (4.8-10.8)
--- NOTE | 2019-02-22 07:20 | NUR ---
REPORT GIVEN TO AM NURSE AT BEDSIDE. PT IN STABLE CONDITION.
[2019-02-22 07:25] LABS: PHOSPHORUS 7.8 mg/dL (2.5-4.9)
[2019-02-22 07:35] LABS: ANION GAP 23.4 (8-16); CARBON DIOXIDE 24.2 mmol/L (21-32); POTASSIUM 5.6 mmol/L (3.5-5.1)
[2019-02-22] MEDS: CYCLOBENZAPRINE 10 MG TAB PO SCH (07:57)
[2019-02-22] MEDS: CINACALCET 30 MG TAB PO SCH (07:57)
[2019-02-22] MEDS: PANTOPRAZOLE 40 MG INJ VIAL IVP SCH (07:57)
[2019-02-22] MEDS: CARVEDILOL 12.5 MG TAB PO SCH (07:58)
[2019-02-22] MEDS: VIT-B COMP/VIT-C/FOLIC ACID 1 TAB PO SCH (07:58)
[2019-02-22] MEDS: ASPIRIN 81 MG TAB.CHEW PO SCH (07:58)
[2019-02-22] MEDS: CALCIUM ACETATE 667 MG TAB PO SCH (07:58)
[2019-02-22 08:00] VITALS: BP 136/83
[2019-02-22 08:03] LABS: CREATININE 12.2 mg/dL (0.7-1.3)
--- NOTE | 2019-02-22 08:05 | NUR ---
AM MEDS ADMINISTERED, PT TOLERATED WELL, HELD THE SCHEDULED AM COREG BECAUSE PT IS SCHEDULED FOR DIALYSIS TODAY.
--- NOTE | 2019-02-22 08:12 | NUR ---
DR MCADAMS AT BEDSIDE, PT STATES THAT HE NEEDS TO GO TO THE [facility] OFF[facility] TODAY AND CANNOT MISS IT. DR MAGALLANES SAID SHE WILL TALK TO DR MONTOYA TO SEE IF PT CAN GET OUTPATIENT HD TOMORROW INSTEAD, SO HE CAN MAKE IT TO HIS SS APPOINTMENT TODAY. I WILL CALL CR[facility] TO SEE WHAT TIME THE DIALYSIS NURSE WILL BE HERE; IF DIALYSIS CAN BE STARTED AROUND 9 AM, PT CAN DISCHARGE RIGHT AFTER.
--- NOTE | 2019-02-22 08:15 | NUR ---
DR TURNER MADE AWARE OF PT'S BUN 89 AND CREATININE 12.2
--- NOTE | 2019-02-22 08:20 | NUR ---
SPOKE WITH CRESCENCIO, SHE SAID THAT THE EARLIEST TIME DIALYSIS NURSE CAN COME IS [address] MAGALLANES IS AWARE.
[2019-02-22] MEDS ORDERED: INUL1CTB PO (09:08)
[2019-02-22] MEDS ORDERED: LEVO250T71 PO (09:08)
--- NOTE | 2019-02-22 09:22 | NUR ---
CALLED CR[facility] AGAIN, ASKED IF PT CAN GET DIALYZED ANY EARLIER THAN 10 AM. CRESCENCIO SAID THAT SHE WILL COME IN AT 10 AM. PLANNING TO DISCHARGE PT AROUND 13:00. IS AWARE.
--- NOTE | 2019-02-22 10:14 | NUR ---
PT WITH A VISITOR AT BEDSIDE. NO S/S OF ANY DISTRESS NOTED. STILL WAITING FOR THE DIALYSIS NURSE.
--- NOTE | 2019-02-22 10:36 | NUR ---
DIALYSIS NURSE PRATHER HERE, STARTING PT DIALYSIS AT THIS TIME.
--- NOTE | 2019-02-22 11:06 | NUR ---
VINCENT called Katina from [facility] [phone]. VINCENT informed Katina that tentative plan for patient is to be discharged after dialysis. Katina stated she would coordinate home health with patient. VINCENT/CARTER will follow up as needed.
[2019-02-22 12:00] VITALS: BP 130/81
[2019-02-22] MEDS: INSULIN LISPRO SLIDING SCALE 100 UNITS/ML VIAL SUBQ PRN (12:01)
--- NOTE | 2019-02-22 12:37 | NUR ---
PT STILL GETTING DIALYZED, DIALYSIS NURSE AT BEDSIDE, VITAL SIGNS ARE STABLE TO PT'S BASELINE.
--- NOTE | 2019-02-22 13:45 | NUR ---
PT FINISHED WITH DIALYSIS AT THIS TIME
--- NOTE | 2019-02-22 14:00 | NUR ---
PT HAS DISCHARGED. PT WAS GIVEN DC INSTRUCTIONS AND TEACHING ON PRESCRIPTION MEDS. PT AND HIS FAMILY VERBALIZED UNDERSTANDING. RIJ CENTRAL LINE WAS REMOVED, AND WRIST BANDS TAKEN OFF. PT LEFT WITH ALL HIS BELONGINGS IN STABLE CONDITION.
== END 2019-02-22 14:00 | disposition home health service (06) | DRG 870 ==
LOC: MED 06:20 → MTU 09:50 → MIC 15:58 → MTU 02-20 21:49
PROVIDERS: ADMIT General Practice; ATTEND General Practice
PROC: 5A1935Z Respiratory Ventilation, Less than 24 Consecutive Hours (ICD-10-PCS; principal; 2019-02-14)
PROC: 0BH17EZ Insertion of Endotracheal Airway into Trachea, Via Natural or Artificial Opening (ICD-10-PCS; 2019-02-14)
PROC: 5A1D70Z Performance of Urinary Filtration, Intermittent, Less than 6 Hours Per Day (ICD-10-PCS; 2019-02-14)
PROC: 02HV33Z Insertion of Infusion Device into Superior Vena Cava, Percutaneous Approach (ICD-10-PCS; 2019-02-14)
PROC: B543ZZA Ultrasonography of Right Jugular Veins, Guidance (ICD-10-PCS; 2019-02-14)
PROC: 5A1955Z Respiratory Ventilation, Greater than 96 Consecutive Hours (ICD-10-PCS; 2019-02-15)
PROC: 5A1D70Z Performance of Urinary Filtration, Intermittent, Less than 6 Hours Per Day (ICD-10-PCS; 2019-02-16)
PROC: 5A1D70Z Performance of Urinary Filtration, Intermittent, Less than 6 Hours Per Day (ICD-10-PCS; 2019-02-18)
PROC: 5A1935Z Respiratory Ventilation, Less than 24 Consecutive Hours (ICD-10-PCS; 2019-02-19)
PROC: 5A1D70Z Performance of Urinary Filtration, Intermittent, Less than 6 Hours Per Day (ICD-10-PCS; 2019-02-20)
PROC: 5A1D70Z Performance of Urinary Filtration, Intermittent, Less than 6 Hours Per Day (ICD-10-PCS; 2019-02-22)
DX: A41.9 Sepsis, unspecified organism (principal); N18.6 End stage renal disease; G92 Toxic encephalopathy; J69.0 Pneumonitis due to inhalation of food and vomit; J15.6 Pneumonia due to other Gram-negative bacteria; J96.21 Acute and chronic respiratory failure with hypoxia; N17.0 Acute kidney failure with tubular necrosis; E87.0 Hyperosmolality and hypernatremia; I13.2 Hypertensive heart and chronic kidney disease with heart failure and with stage 5 chronic kidney disease, or end stage renal disease; J44.0 Chronic obstructive pulmonary disease with (acute) lower respiratory infection; J98.11 Atelectasis; E87.5 Hyperkalemia; E87.8 Other disorders of electrolyte and fluid balance, not elsewhere classified; E83.41 Hypermagnesemia; Z71.3 Dietary counseling and surveillance; D89.9 Disorder involving the immune mechanism, unspecified; E03.9 Hypothyroidism, unspecified; E10.22 Type 1 diabetes mellitus with diabetic chronic kidney disease; E10.65 Type 1 diabetes mellitus with hyperglycemia; E66.01 Morbid (severe) obesity due to excess calories; E78.00 Pure hypercholesterolemia, unspecified; E78.5 Hyperlipidemia, unspecified; E83.39 Other disorders of phosphorus metabolism; H54.8 Legal blindness, as defined in USA; I50.9 Heart failure, unspecified; K64.4 Residual hemorrhoidal skin tags; T50.901A Poisoning by unspecified drugs, medicaments and biological substances, accidental (unintentional), initial encounter; Z83.3 Family history of diabetes mellitus; Z87.828 Personal history of other (healed) physical injury and trauma; Z87.891 Personal history of nicotine dependence; Z91.19 Patient's noncompliance with other medical treatment and regimen; Z99.2 Dependence on renal dialysis; Z79.82 Long term (current) use of aspirin; Z79.899 Other long term (current) drug therapy; Z82.49 Family history of ischemic heart disease and other diseases of the circulatory system; Y92.89 Other specified places as the place of occurrence of the external cause; Z68.32 Body mass index [BMI] 32.0-32.9, adult
CPT/HCPCS: 36415; 36600; 70450; 71045; 80048; 80053; 80202; 82009; 82550; 82553; 82803; 82948; 83036; 83735; 83880; 84100; 84132; 84443; 84484; 84550; 85025; 85610; 85730; 86704; 86706; 86708; 86709; 86803; 87040; 87070; 87081; 87186; 87205; 87340; 89220; 90935; 92610; 93005; 94002; 94003; 94640; 96372; 96374; 96375; 97110; 97116; 97163-GP; 97530; 99291; C9113; G0480; G0482; J0610; J1642; J1644; J1815; J1940; J1956; J2060; J2250; J2270; J2310; J2405; J2543; J2704; J2930; J3010; J3370; J3490; J7030; J7060; J7613; J7620; Q0092

== ENCOUNTER 2019-06-22 06:28 | Emergency (ER) | payer OTHER, MEDICAID ==
[~2019-06-22] VITALS: Ht 172.7 cm; Wt 91.2 kg
[~2019-06-22 06:28] MED LIST: ASPI81EC97 PO; CARV25TA PO; CINA60TA1 PO; ERGO50CA PO; INUL1CTB PO; LEVO0.083 PO; LEVO250T71 PO; OMEP20TC12 PO; ROSU10TA1 PO
[2019-06-22 06:38] VITALS: BP 140/69
--- NOTE | 2019-06-22 06:50 | NUR ---
PT AMBULATES TO BED 05 WITH STEADY GAIT IN UPRIGHT POSITION. HOLDS ON TO FRIEND FOR GUIDANCE. SPITTING BRIGHT BLOOD INTO EMESIS BAG.
--- NOTE | 2019-06-22 06:54 | NUR ---
39 Y/O MALE HAD SEVERAL TEETH EXTRACTIONS ON MONDAY AND MONDAY FOR DENTURE PLACEMENT. PT STATES "I THINK ONE OF MY STITCHES CAME OUT". REPORTS ORAL BLEEDING X 5 HOURS AND 8/10 MOUTH PAIN. A/O X4; FOLLOWS COMMANDS; NOTICEABLE BLEEDING FROM UPPER MOUTH. PAIN IS AN 8/10 SHARP PAIN. PATIENT STATES HE HAS NAUSEA FROM THE BLEEDING. ERMD MADE AWARE OF STATUS. SIDE RAILSX1. VSS. PMH-- BLINDNESS, DM, ESRD; DIALYSIS- (TTS), SHUNT TO LEFT FA RX:HIGH CHOLESTEROL MEDS; OMEPRAZOLE; BABY ASA; THYROXINE; KIDNEY VITAMINS;CARVEDILOL; INSULIN; NOVOLOG; HUMALOG Addendum: 06/22/19 at 0709 by MEDDI PMH:HTN
--- NOTE | 2019-06-22 07:00 | NUR ---
Pt report given to RIMA DYE. Transfer of care at this time.
[2019-06-22] MEDS ORDERED: LIDOCAINE VISCOUS 2% 20 ML UDC PO ONE (07:15)
[2019-06-22 08:00] LABS: BASOPHILS # (AUTO) 0.1 K/uL (0.00-0.22); BASOPHILS % (AUTO) 0.9 % (0.0-2.0); EOSINOPHILS # (AUTO) 0.3 K/uL (0-0.4); EOSINOPHILS % (AUTO) 4.3 % (0.0-4.0); HEMATOCRIT 42.4 % (36-52); HEMOGLOBIN 13.8 g/dL (12.0-18.0); LYMPHOCYTES # (AUTO) 1.4 K/uL (2.0-11.5); LYMPHOCYTES % (AUTO) 18.1 % (20.5-51.1); MEAN CORPUSCULAR HEMOGLOBIN 28 pg (27-31); MEAN CORPUSCULAR HGB CONC 33 g/dL (33-37); MONOCYTES # (AUTO) 0.5 K/uL (0.8-1.0); NEUTROPHILS # (AUTO) 5.3 K/uL (1.8-7.7); NEUTROPHILS % (AUTO) 69.7 % (42.2-75.2); PLATELET COUNT (AUTO) 204 K/uL (140-450); RED BLOOD CELL COUNT(AUTO) 4.87 MIL/uL (4.20-6.10); RED CELL DISTRIBUTION WIDTH 15.6 % (11.6-13.7); WHITE BLOOD COUNT (AUTO) 7.6 K/uL (4.8-10.8)
[2019-06-22 08:12] LABS: CARBON DIOXIDE 30.7 mmol/L (21-32); POTASSIUM 4.7 mmol/L (3.5-5.1)
[2019-06-22 08:16] LABS: PROTHROMBIN TIME 9.9 secs (10.8-13.4)
[2019-06-22 08:18] LABS: ALBUMIN 4.1 g/dL (3.4-5.0); CREATININE 11.4 mg/dL (0.7-1.3); TOTAL BILIRUBIN 0.5 mg/dL (0.0-1.0)
--- NOTE | 2019-06-22 08:51 | NUR ---
Pt expresses he wants to leave because he has a dentist appointment. Dr. Loredo made aware.
[2019-06-22 09:23] VITALS: BP 119/82
--- NOTE | 2019-06-22 09:23 | NUR ---
Patient discharged with v/s stable. Written and verbal after care instructions given and explained. Patient verbalized understanding. Ambulatory with steady gait. All questions addressed prior to discharge. Advised to follow up with PMD.
== END 2019-06-22 09:23 | disposition home or self-care (01) ==
LOC: MED 06:28
DX: K91.841 Postprocedural hemorrhage of a digestive system organ or structure following other procedure (principal); N18.6 End stage renal disease; E07.9 Disorder of thyroid, unspecified; F12.90 Cannabis use, unspecified, uncomplicated; H54.7 Unspecified visual loss; E11.22 Type 2 diabetes mellitus with diabetic chronic kidney disease; Z99.2 Dependence on renal dialysis; Z79.82 Long term (current) use of aspirin; Z79.899 Other long term (current) drug therapy; Y83.8 Other surgical procedures as the cause of abnormal reaction of the patient, or of later complication, without mention of misadventure at the time of the procedure
CPT/HCPCS: 36415; 80053; 85025; 85610; 85730; 86886; 86900; 86901; 99283